=== PATIENT | male | born 1930 | race Caucasian/White ===

== ENCOUNTER → 2017-04-25 | Outpatient (CLI) | payer OTHER ==
[2017-04-25 10:31] LABS: Basophils # (auto) 0 uL; Basophils % (auto) 0.4 % (0.0-2.0); Eosinophils # (auto) 0.1 uL; Eosinophils % (auto) 2.1 % (0.0-7.0); Hematocrit 40.7 % (41.0-53.0); Hemoglobin 13.8 g/dL (13.5-17.5); Lymphocytes # (auto) 2.3 uL; Lymphocytes % (auto) 33.6 % (10.0-50.0); Mean Corpuscular Hemoglobin 31.5 pg (28.0-32.0); Mean Corpuscular Hgb Conc. 33.9 g/dL (32.0-36.0); Mean Corpuscular Volume 93.1 fL (80.0-100.0); Mean Platelet Volume 9.4 fL (7.4-10.4); Monocytes # (auto) 0.6 uL; Monocytes % (auto) 9.3 % (0.0-12.0); Neutrophils # (auto) 3.8 uL; Neutrophils % (auto) 54.6 % (37.0-80.0); Platelet Count (auto) 172 10^3/uL (140-450); Red Cell Distribution Width 14.5 % (11.6-16.0); White Blood Cell 6.9 10^3/uL (4.4-10.8)
[2017-04-25 11:08] LABS: BUN/Creatinine Ratio 16.7; Bilirubin, Total 0.5 mg/dL (0.2-1.0); Calcium 8.8 mg/dL (8.5-10.1); Potassium 4.1 mmol/L (3.5-5.1); Total Protein 7.4 g/dL (6.4-8.2)
== END | disposition home or self-care (01) ==
LOC: LAB 09:58
PROVIDERS: ATTEND Internal Medicine
DX: Z00.00 Encounter for general adult medical examination without abnormal findings (principal); I10 Essential (primary) hypertension; E78.2 Mixed hyperlipidemia; E55.9 Vitamin D deficiency, unspecified
CPT/HCPCS: 36415; 80053; 80061; 82306; 84153; 85025

== ENCOUNTER → 2017-09-27 | Outpatient (CLI) | payer OTHER ==
[2017-09-27 09:00] LABS: Urine Bilirubin Negative (Negative); Urine Blood Negative /uL (Negative); Urine Color Yellow (Yellow); Urine Glucose Normal (Normal); Urine Ketone Negative (Negative); Urine Nitrite Negative (Negative); Urine RBC <1 /hpf (0 - 3); Urine Urobilinogen Normal (Negative)
[2017-09-27 09:02] LABS: Basophils # (auto) 0 uL; Basophils % (auto) 0.6 % (0.0-2.0); Eosinophils # (auto) 0.1 uL; Hematocrit 41.2 % (41.0-53.0); Hemoglobin 13.9 g/dL (13.5-17.5); Lymphocytes # (auto) 1.8 uL; Lymphocytes % (auto) 31.7 % (10.0-50.0); Mean Corpuscular Hgb Conc. 33.8 g/dL (32.0-36.0); Mean Corpuscular Volume 94.7 fL (80.0-100.0); Mean Platelet Volume 9.6 fL (6.9-10.8); Monocytes # (auto) 0.6 uL; Monocytes % (auto) 9.9 % (0.0-12.0); Neutrophils # (auto) 3.2 uL; Neutrophils % (auto) 55.8 % (37.0-80.0); Platelet Count (auto) 136 10^3/uL (140-450); White Blood Cell 5.8 10^3/uL (4.4-10.8)
[2017-09-27 09:45] LABS: BUN/Creatinine Ratio 19.8; Bilirubin, Total 0.5 mg/dL (0.2-1.0); Calcium 8.8 mg/dL (8.5-10.1); Potassium 4.3 mmol/L (3.5-5.1); Total Protein 7.6 g/dL (6.4-8.2)
== END | disposition home or self-care (01) ==
LOC: LAB 07:33
PROVIDERS: ATTEND Family Medicine
DX: I13.0 Hypertensive heart and chronic kidney disease with heart failure and stage 1 through stage 4 chronic kidney disease, or unspecified chronic kidney disease (principal); I50.32 Chronic diastolic (congestive) heart failure; N18.3 Chronic kidney disease, stage 3 (moderate); I25.10 Atherosclerotic heart disease of native coronary artery without angina pectoris
CPT/HCPCS: 36415; 80053; 80061; 81001; 82306; 82607; 83036; 84443; 85025

== ENCOUNTER → 2017-12-05 | Outpatient (CLI) | payer OTHER ==
[2017-12-05 12:42] LABS: Free T3 2.76 pg/mL (2.3-4.2); Free T4 (Free Thyroxine) 0.73 ng/dL (0.89-1.76)
== END | disposition home or self-care (01) ==
LOC: LAB 10:49
PROVIDERS: ATTEND Family Medicine
DX: E05.90 Thyrotoxicosis, unspecified without thyrotoxic crisis or storm (principal)
CPT/HCPCS: 36415; 84439; 84443; 84481

== ENCOUNTER → 2018-02-28 | Outpatient (CLI) | payer OTHER ==
[2018-02-28 09:38] LABS: Basophils # (auto) 0.1 uL; Basophils % (auto) 0.8 % (0.0-2.0); Eosinophils # (auto) 0.1 uL; Eosinophils % (auto) 1.3 % (0.0-7.0); Hematocrit 41.3 % (41.0-53.0); Hemoglobin 13.9 g/dL (13.5-17.5); Lymphocytes # (auto) 1.9 uL; Lymphocytes % (auto) 26.5 % (10.0-50.0); Mean Corpuscular Hemoglobin 31.7 pg (28.0-32.0); Mean Corpuscular Hgb Conc. 33.7 g/dL (32.0-36.0); Mean Corpuscular Volume 94.1 fL (80.0-100.0); Monocytes # (auto) 0.7 uL; Monocytes % (auto) 9.8 % (0.0-12.0); Neutrophils # (auto) 4.3 uL; Neutrophils % (auto) 61.6 % (37.0-80.0); Platelet Count (auto) 148 10^3/uL (140-450); Red Blood Cells 4.39 10^6/uL (4.5-5.90); Red Cell Distribution Width 13.5 % (11.8-14.3)
[2018-02-28 10:00] LABS: BUN/Creatinine Ratio 19.7; Bilirubin, Total 0.5 mg/dL (0.2-1.0); Calcium 9.1 mg/dL (8.5-10.1); Potassium 4.8 mmol/L (3.5-5.1); Total Protein 7.5 g/dL (6.4-8.2)
== END | disposition home or self-care (01) ==
LOC: LAB 09:22
PROVIDERS: ATTEND Family Medicine
DX: I12.9 Hypertensive chronic kidney disease with stage 1 through stage 4 chronic kidney disease, or unspecified chronic kidney disease (principal); N18.3 Chronic kidney disease, stage 3 (moderate); E03.9 Hypothyroidism, unspecified; E78.4 Other hyperlipidemia
CPT/HCPCS: 36415; 80053; 80061; 84443; 85025

== ENCOUNTER → 2018-07-24 | Outpatient (CLI) | payer OTHER | END | disposition home or self-care (01) | LOC: LAB 10:39 | PROVIDERS: ATTEND Family Medicine | DX: E03.9 Hypothyroidism, unspecified (principal); I10 Essential (primary) hypertension | CPT/HCPCS: 36415; 84443 ==

== ENCOUNTER → 2018-11-22 | Outpatient (CLI) | payer OTHER ==
[2018-11-22 09:19] LABS: BUN/Creatinine Ratio 17.1; Calcium 8.7 mg/dL (8.5-10.1); Potassium 4.7 mmol/L (3.5-5.1)
== END | disposition home or self-care (01) ==
LOC: LAB 08:34
PROVIDERS: ATTEND Internal Medicine Cardiovascular Disease
DX: I10 Essential (primary) hypertension (principal); I20.8 Other forms of angina pectoris; E03.9 Hypothyroidism, unspecified; E78.49 Other hyperlipidemia
CPT/HCPCS: 36415; 80048

== ENCOUNTER → 2019-01-28 | Outpatient (CLI) | payer OTHER ==
[2019-01-28 11:49] LABS: BUN/Creatinine Ratio 18.3; Potassium 4.3 mmol/L (3.5-5.1)
== END | disposition home or self-care (01) ==
LOC: LAB 11:21
PROVIDERS: ATTEND Urology
DX: N40.0 Benign prostatic hyperplasia without lower urinary tract symptoms (principal)
CPT/HCPCS: 36415; 80048; 84153

== ENCOUNTER → 2019-02-06 | Outpatient (CLI) | payer OTHER | END | disposition home or self-care (01) | LOC: XY 07:30 | PROVIDERS: ATTEND Family Medicine | DX: I70.203 Unspecified atherosclerosis of native arteries of extremities, bilateral legs (principal); I10 Essential (primary) hypertension; E78.00 Pure hypercholesterolemia, unspecified | CPT/HCPCS: 93886 ==

== ENCOUNTER 2019-06-30 09:09 | Inpatient (IN) | payer OTHER ==
[2019-06-26 11:17] LABS: Basophils # (auto) 0.1 uL; Basophils % (auto) 0.8 % (0.0-2.0); Eosinophils # (auto) 0 uL; Eosinophils % (auto) 0.5 % (0.0-7.0); Hemoglobin 14.1 g/dL (13.5-17.5); Lymphocytes # (auto) 1.6 uL; Lymphocytes % (auto) 22.6 % (10.0-50.0); Mean Corpuscular Hemoglobin 31.8 pg (28.0-32.0); Mean Corpuscular Hgb Conc. 33.7 g/dL (32.0-36.0); Mean Corpuscular Volume 94.3 fL (80.0-100.0); Monocytes # (auto) 0.7 uL; Monocytes % (auto) 9.8 % (0.0-12.0); Neutrophils # (auto) 4.6 uL; Neutrophils % (auto) 66.3 % (37.0-80.0); Nucleated Red Blood Cells % 0.1 %; Platelet Count (auto) 146 10^3/uL (140-450); Red Blood Cells 4.45 10^6/uL (4.5-5.90); Red Cell Distribution Width 13.5 % (11.8-14.3); White Blood Cell 6.9 10^3/uL (4.4-10.8)
[2019-06-26 11:22] LABS: Urine Bacteria NONE SEEN /hpf (None Seen); Urine Blood Negative /uL (Negative); Urine Mucus FEW (None Seen); Urine Specific Gravity 1.029 (1.001-1.035); Urine WBC 3 /hpf (0 - 3)
[2019-06-26 11:41] LABS: INR 0.99 (0.9-1.15); Partial Thromboplastin Time 25.6 sec (23.64-32.05)
[2019-06-26 11:43] LABS: BUN/Creatinine Ratio 18.7; Calcium 9.2 mg/dL (8.5-10.1)
[2019-06-26 11:45] LABS: Bilirubin, Total 0.6 mg/dL (0.2-1.0); Total Protein 7.6 g/dL (6.4-8.2)
[~2019-06-30] VITALS: Ht 165.1 cm; Wt 65.1 kg
[~2019-06-30 09:09] MED LIST: ALBUAER3 IN; AMLO10TA13 PO; ASPI-231 PO; ASPI-404 PO; ATOR20TA50 PO; CLOP75TA41 PO; DILT180C88 PO; DILT90TA PO; DOXA1TAB50 PO; DOXA4TAB5 PO; FLUT250M2 INH; FURO40TA4 PO; GLYCOPYRROLATE 0.2 MG/ML 1ML VIAL IV ONE; MONT10TA34 PO; MULTCAP45 PO; NITR0.4S29 SL; POTA-167 PO; POTA10SO11 PO; TAMS0.4C36 PO; TRAZ50TA2 PO
[2019-06-30] MEDS ORDERED: fentaNYL CITRATE 100 MCG/2 ML VL IV PRN (12:15)
[2019-06-30] MEDS ORDERED: HYDROmorphone HCL 2 MG/ML VL IV PRN (12:15)
[2019-06-30] MEDS ORDERED: METOCLOPRAMIDE HCL 5MG/ml INJ 2ml VIAL IV PRN (12:15)
[2019-06-30] MEDS ORDERED: KETOROLAC TROMETH 30 MG/ML 1ML VIAL IV ONE (12:15)
[2019-06-30] MEDS ORDERED: ONDANSETRON HCL 4 MG/2 ML VIAL ONE (12:24)
[2019-06-30] MEDS ORDERED: fentaNYL CITRATE 100 MCG/2 ML VL ONE (12:24)
[2019-06-30] MEDS ORDERED: SODIUM CHLORIDE LOCK 30 ML ONE (12:24)
[2019-06-30] MEDS ORDERED: MIDAZOLAM HCL 1MG/1ML-2 ML VIAL ONE (12:24)
[2019-06-30] MEDS ORDERED: PROPOFOL 10 MG/ML 20 ML IV ONE (12:24)
[2019-06-30] MEDS ORDERED: CIPROFLOXACIN 400MG/200ML 200 ML IV ONE (12:51)
[2019-06-30] MEDS ORDERED: IPRATROPIUM BROM 0.5 MG/2.5ML INH SOL ONE (14:23)
[2019-06-30] MEDS ORDERED: ALBUTEROL SULF 2.5 MG/0.5ML(0.5%) NEB SOLN ONE (14:23)
[2019-06-30] MEDS ORDERED: IPRATROPIUM BROM 0.5 MG/2.5ML INH SOL NEB ONE (14:30)
[2019-06-30] MEDS ORDERED: ALBUTEROL SULF 2.5 MG/0.5ML(0.5%) NEB SOLN NEB ONE (14:30)
--- NOTE | 2019-06-30 14:40 | NUR ---
MN GIVEN WITH 1.25MG ALBUTEROL AND 0.5MG ATROVENT VIA AEROSOL MASK 6L/MIN. PT IS AWAKE, ALERT AND ORIENTED, ABLE TO UNDERSTAND AND FOLLOW INDICATIONS. BS ARE INSPIRATORY WHEEZES TO AUSCULTATION. PT ON HIGH FOWLERS. PT TOLERATING WELL. 99% O2 SATS, HR 101 BPM, RR22 BPM. WILL CONTINUE TO MONITOR PT.
--- NOTE | 2019-06-30 14:50 | NUR ---
PT PLACED ON 30% COOL MYST VIA AEROSOL MASK. PER DR OVERTON.
[2019-06-30] MEDS ORDERED: MORPHINE SULF INJ 2 MG/ML SYRINGE 1ML IV PRN (15:15)
[2019-06-30] MEDS ORDERED: methylPREDNISolone SOD SUCC 125 MG/2 ML VL IV ONE (15:15)
[2019-06-30] MEDS ORDERED: ALBUTEROL SULF 2.5 MG/0.5ML(0.5%) NEB SOLN NEB PRN (15:15)
[2019-06-30] MEDS ORDERED: NITROGLYCERIN 0.4 MG SL TAB SL PRN (15:15)
[2019-06-30] MEDS ORDERED: IPRATROPIUM BROM 0.5 MG/2.5ML INH SOL NEB PRN (15:15)
[2019-06-30 17:40] VITALS: BP 154/67
--- NOTE | 2019-06-30 17:40 | NUR ---
Telemetry admit from ER [facility] P[facility]REZ admitted to Telemetry unit after SBAR received. Patient oriented to AYDEN GONZALEZ, primary RN, unit, room, bed, and unit policies regarding patient care and visiting hours. Patient now on continuous telemetry monitoring, tele box # 29 and telemetry reading on arrival to unit is . Patient placed on bedside oxygen, weighed by bed scale and encouraged to call if they need something. All questions and concerns addressed, patient verbalized understanding.
[2019-06-30] MEDS: IPRATROPIUM BROM 0.5 MG/2.5ML INH SOL NEB SCH (18:28)
[2019-06-30] MEDS: BUDESONIDE (INHALATION) 0.5 MG/2 ML NEB NEB SCH (18:28)
[2019-06-30] MEDS: ALBUTEROL SULF 2.5 MG/0.5ML(0.5%) NEB SOLN NEB SCH (18:28)
[2019-06-30 18:48] VITALS: BP 154/67
--- NOTE | 2019-06-30 19:00 | NUR ---
Opening Shift Note Assumed care of patient, awake and alert. Family on bedside. No S/S of distress/SOB or pain. Instructed on POC and to call for assist PRN, will continue to monitor for changes Q1hr and PRN.
[2019-06-30 20:00] VITALS: BP 143/77
[2019-06-30 22:08] VITALS: BP 143/77
[2019-07-01] MEDS: BUDESONIDE (INHALATION) 0.5 MG/2 ML NEB NEB SCH ×3 (06:35→19:19)
[2019-07-01] MEDS: ALBUTEROL SULF 2.5 MG/0.5ML(0.5%) NEB SOLN NEB SCH ×3 (06:35→19:18)
[2019-07-01] MEDS: IPRATROPIUM BROM 0.5 MG/2.5ML INH SOL NEB SCH ×3 (06:35→19:19)
[2019-07-01] MEDS ORDERED: amLODIPine BESYLATE 5 MG TAB ONE (06:37)
[2019-07-01 06:56] LABS: Calcium 9.1 mg/dL (8.5-10.1); Potassium 4.1 mmol/L (3.5-5.1)
--- NOTE | 2019-07-01 07:28 | NUR ---
Opening Shift Note Assumed care of patient, awake and alert. No S/S of distress/SOB or pain. Instructed on POC and to call for assist PRN, will continue to monitor for changes Q1hr and PRN.
[2019-07-01] MEDS: MONTELUKAST SODIUM 10 MG TAB PO SCH (09:30)
[2019-07-01] MEDS: ATORVASTATIN 20 MG TAB PO SCH (09:30)
[2019-07-01 09:35] VITALS: BP 137/74
[2019-07-01] MEDS ORDERED: PATIENTS OWN MEDICATION (Atorvastatin Calcium 1 TAB) PO SCH (10:00)
[2019-07-01] MEDS ORDERED: ASPirin-EC 81 mg tab PO SCH (10:00)
[2019-07-01 11:13] LABS: Basophils # (auto) 0 uL; Basophils % (auto) 0.1 % (0.0-2.0); Eosinophils # (auto) 0 uL; Hematocrit 43.1 % (41.0-53.0); Hemoglobin 14.3 g/dL (13.5-17.5); Lymphocytes # (auto) 0.8 uL; Lymphocytes % (auto) 10.8 % (10.0-50.0); Mean Corpuscular Hemoglobin 31.6 pg (28.0-32.0); Mean Corpuscular Hgb Conc. 33.3 g/dL (32.0-36.0); Mean Corpuscular Volume 95.1 fL (80.0-100.0); Monocytes # (auto) 0.1 uL; Monocytes % (auto) 1.2 % (0.0-12.0); Neutrophils # (auto) 6.1 uL; Neutrophils % (auto) 87.9 % (37.0-80.0); Nucleated Red Blood Cells % 0.1 %; Platelet Count (auto) 135 10^3/uL (140-450); Red Blood Cells 4.53 10^6/uL (4.5-5.90); Red Cell Distribution Width 13.8 % (11.8-14.3)
[2019-07-01] MEDS ORDERED: DILTIAZEM HCL 90 MG PO SCH (12:00)
[2019-07-01 13:00] VITALS: BP 147/62
[2019-07-01] MEDS ORDERED: LEVOTHYROXINE SODIUM 50 MCG TAB PO ONE (15:15)
[2019-07-01 15:51] VITALS: BP 150/80
[2019-07-01] MEDS: TAMSULOSIN HYDROCHLORIDE 0.4 MG CAP PO SCH (17:44)
[2019-07-01 18:43] VITALS: BP 132/67
--- NOTE | 2019-07-01 19:19 | NUR ---
Change of shift given to social services coordinator RN. No distress noted.
--- NOTE | 2019-07-01 19:30 | NUR ---
Opening Shift Note Assumed care of patient, sleeping. No S/S of distress/SOB or pain. Awakened upon this RN's entering room. Instructed on POC and to call for assist PRN, will continue to monitor for changes Q1hr and PRN. Bed in low position. Pt smiling and in good spirits. Bed low with HOB in semi-Rios's position. Call light within reach of pt.
[2019-07-01 22:00] VITALS: BP 146/75
--- NOTE | 2019-07-01 22:20 | NUR ---
Pt awakened, startled and anxious, thinking he is losing his mind because he did not know where he is. Pt c/o substernal cramping pain and reported difficulty breathing. Pt tachypneic but no other s/sx of resp distress. BBS cont clear in upper lobes and diminished in bilat lower lobes. HR low 90s and rhythm at present is NSR. NVS WNL. Paging hospitalist computer information systems professor. RN returned to talk with pt for further assessment. Pt telling of experience in OR but confusing it with being in present room also states that his daughter constantly tells him to stop worrying about past negative occurrences in his life and worrying about other people. Pt then attempting to find things wrong with his mind. This RN instructing pt repeatedly to relax, quieten himself and stop dwelling on negative things he cannot change at this time. Pt laughed again stating his daughter tells him this "all the time."
--- NOTE | 2019-07-01 22:40 | NUR ---
Sanjuana Metzger RN MACHINE CLERICAL VERIFIER, hospitalist application support manager, returned page ordering Tylenol as one time dose.
[2019-07-01] MEDS ORDERED: ACETAMINOPHEN 325 MG TAB PO ONE (22:45)
--- NOTE | 2019-07-01 23:00 | NUR ---
Tylenol not cleared through pharmacy yet. Pt states he is "beginning to feel better in my head."
--- NOTE | 2019-07-01 23:34 | NUR ---
Pt refused Tylenol stating he is not in pain.
[2019-07-02 05:06] VITALS: BP 149/72
[2019-07-02 06:18] LABS: Calcium 8.9 mg/dL (8.5-10.1); Magnesium 2.7 mg/dL (1.6-2.6)
[2019-07-02] MEDS: ALBUTEROL SULF 2.5 MG/0.5ML(0.5%) NEB SOLN NEB SCH ×3 (06:26→18:22)
[2019-07-02] MEDS: BUDESONIDE (INHALATION) 0.5 MG/2 ML NEB NEB SCH ×2 (06:27→18:23)
[2019-07-02] MEDS: IPRATROPIUM BROM 0.5 MG/2.5ML INH SOL NEB SCH ×3 (06:27→18:22)
[2019-07-02 06:36] LABS: Potassium 4.2 mmol/L (3.5-5.1)
[2019-07-02] MEDS: LEVOTHYROXINE SODIUM 50 MCG TAB PO SCH (06:46)
[2019-07-02 08:00] VITALS: BP 138/70
[2019-07-02] MEDS: ATORVASTATIN 20 MG TAB PO SCH (09:15)
[2019-07-02] MEDS: MONTELUKAST SODIUM 10 MG TAB PO SCH (09:15)
[2019-07-02] MEDS: amLODIPine BESYLATE 5 MG TAB PO SCH (09:16)
[2019-07-02 12:00] VITALS: BP 139/74
[2019-07-02] MEDS ORDERED: MILK OF MAGNESIA 30ML SUSP PO ONE (13:00)
--- NOTE | 2019-07-02 13:17 | NUR ---
Valeria Phillips NP paged. Awaiting call back.
--- NOTE | 2019-07-02 13:19 | NUR ---
Speak with Valeria Phillips NP. Per DUMPMAN, Dr. Benz cleared patient for surgery.
--- NOTE | 2019-07-02 14:46 | NUR ---
Spoke to Dr. Carbone. Per , page Dr. Banda regarding POC. Dr. Banda paged, awaiting call back.
--- NOTE | 2019-07-02 15:26 | NUR ---
Spoke with Dr. Banda. Per MD, he will be in later this evening to assess patient for POC and possible surgery.
[2019-07-02 16:54] VITALS: BP 118/61
--- NOTE | 2019-07-02 17:22 | NUR ---
Received call from Dr. Banda. Per , surgery is planned for tomorrow. Use original consents.
[2019-07-02] MEDS: TAMSULOSIN HYDROCHLORIDE 0.4 MG CAP PO SCH (17:38)
--- NOTE | 2019-07-02 19:15 | NUR ---
Opening Shift Note Assumed care of patient, awake and alert. No S/S of distress/SOB and pt denies pain. Instructed pt and and daughter on POC and to call for assist PRN. Family asking questions regarding pt's prev knee surg and current plan and plan for current diagnosis. This RN discussing with family that current diagnosis requiring more observation and assessment and that consult requested for ortho not yet done. Family VU and thanks for information. Reviewed VS of the day as well as bp taken at this time and relayed to them as requested. Again family VU and pleasure at attention received. This RN will continue to monitor for changes Q1hr and PRN. Bed in low position with HOB in semi- Rios's position. Sitter in chair at foot of bed. Addendum: 07/03/19 at 0430 by TAMRA SOLORIO RN Above not entered on wrong patient by mistake and for wrong time.
--- NOTE | 2019-07-02 19:18 | NUR ---
Change of shift given to manufacturing shift supervisor RN. No distress noted.
--- NOTE | 2019-07-02 19:30 | NUR ---
Opening Shift Note Assumed care of patient, alert and watching television. No S/S of distress/SOB and pt denies pain. Instructed on POC and to call for assist PRN, will continue to monitor for changes Q1hr and PRN. Pt smiling and in good spirits. Bed low with HOB in semi-Rios's position. Call light within reach of pt.
[2019-07-02 21:22] VITALS: BP 120/68
[2019-07-03 03:50] VITALS: BP 138/68
[2019-07-03] MEDS: LEVOTHYROXINE SODIUM 50 MCG TAB PO SCH (06:26)
[2019-07-03] MEDS: IPRATROPIUM BROM 0.5 MG/2.5ML INH SOL NEB SCH ×3 (07:23→19:09)
[2019-07-03] MEDS: BUDESONIDE (INHALATION) 0.5 MG/2 ML NEB NEB SCH ×2 (07:24→19:09)
[2019-07-03] MEDS: ALBUTEROL SULF 2.5 MG/0.5ML(0.5%) NEB SOLN NEB SCH ×3 (07:24→19:09)
[2019-07-03 08:00] VITALS: BP 137/77
--- NOTE | 2019-07-03 08:33 | NUR ---
patient off unit to procedure. no pain or signs of distress.
[2019-07-03] MEDS ORDERED: CIPROFLOXACIN 400MG/200ML 200 ML IV ONE (08:59)
[2019-07-03] MEDS ORDERED: fentaNYL CITRATE 100 MCG/2 ML VL ONE (09:04)
[2019-07-03] MEDS ORDERED: MIDAZOLAM HCL 1MG/1ML-2 ML VIAL ONE (09:05)
[2019-07-03] MEDS ORDERED: PROPOFOL 10 MG/ML 20 ML IV ONE (09:07)
[2019-07-03] MEDS ORDERED: ONDANSETRON HCL 4 MG/2 ML VIAL ONE (09:07)
[2019-07-03] MEDS ORDERED: SODIUM CHLORIDE LOCK 10 ML ONE (09:07)
[2019-07-03] MEDS ORDERED: SUCCINYLCHOLINE CHLORIDE 20 MG/ML 10ML VIAL IV ONE (09:42)
[2019-07-03] MEDS ORDERED: ROCURONIUM 10MG/ML 10ML VIAL IV ONE (09:42)
[2019-07-03 12:00] VITALS: BP 150/73
--- NOTE | 2019-07-03 12:00 | NUR ---
patient back to room. no reported complications. patient tolerated the procedure well.
[2019-07-03] MEDS: ATORVASTATIN 20 MG TAB PO SCH (14:30)
--- NOTE | 2019-07-03 14:30 | NUR ---
PATIENT'S URINE TURNING BLOODY. GROSS HEMATURIA NOTED IN THE ALATORRE. LITTLE TO NO OUTPUT AT THE MOMENT. WILL CONTINUE TO MONITOR OUTPUT FOR SIGNS OF A POSSIBLE CLOT BLOCKAGE.
[2019-07-03] MEDS: amLODIPine BESYLATE 5 MG TAB PO SCH (14:31)
[2019-07-03] MEDS: MONTELUKAST SODIUM 10 MG TAB PO SCH (14:31)
--- NOTE | 2019-07-03 14:52 | NUR ---
Nutrition Assessment Notes please see attached link for complete assessment Est. Needs BW [id number] kcal (25-30 kcal/kgBW), 62-74 gms pro (1.0-1.2 gms/kgBW). Will continue to monitor pertinent labs and reassess nutrient need prn Addendum: 07/03/19 at [address] Amended: Links added.
--- NOTE | 2019-07-03 15:32 | NUR ---
NO SIGNIFICANT AMOUNT OF OUTPUT IN THE LAST HOUR. DR. MCKENZIE NOTIFIED. WILL FLUSH THE LINE TO DETERMINE PATENCY.
[2019-07-03] MEDS ORDERED: DOCUSATE SOD 100 MG CAP PO ONE (15:45)
[2019-07-03] MEDS ORDERED: LACTULOSE 20Gm/30ML SOLN PO ONE (15:45)
--- NOTE | 2019-07-03 15:57 | NUR ---
Spoke with Dr. Banda. He instructed me to do manually flush and see if the urine runs clear. if the urine will not clear than we can start the patient on CBI.
--- NOTE | 2019-07-03 16:10 | NUR ---
Davis flushed with sterile water. davis is patent. urine started to clear from bright red to more pale pink. will continue to monitor urine output and patentcy. patient reported that he was moving and the tube got caught and he accidentally tugged on the davis. at that time is started bleeding.
[2019-07-03 17:00] VITALS: BP 128/76
--- NOTE | 2019-07-03 17:23 | NUR ---
assessment Patient is a 88 year old male who is alert and oriented. Patients cognitive abilities are intact. Prior to admission patient lived home with family and functioned with assistance. Per patient he will return home to his prior living arrangements post discharge and family will transport him home. Patient informed me his PCP is Dr Kai Norman. Patient informed me his daughter Venecia helps him with his ADL's. Patient informed me he feels safe returning home on discharge. Patient informed me he has no needs at home. I informed patient he has a right to speak to a social insurance administrator regarding all care. I informed patient he has a right to participate in any and all discharge planning. Patient is aware of visiting hours on the hospital floor. I informed patient he has a right to privacy. Patient does not have a POA and advanced directive. I have offered patient information on POA and advanced directives. I informed the patient the advantages and benefits of having an Advanced Directive. Patient verbalized understanding and agreed to discharge plan. Addendum: 07/04/19 at 1726 by Lauren MYLES Amended: Links added.
[2019-07-03] MEDS: TAMSULOSIN HYDROCHLORIDE 0.4 MG CAP PO SCH (18:15)
--- NOTE | 2019-07-03 19:40 | NUR ---
Opening Shift Note Assumed care of patient, awake and alert. No S/S of distress/SOB or pain. Instructed on POC and to call for assist PRN. Bed in lowest locked position, call light within reach, side rails up x2, fall precautions in place. Will continue to monitor for changes Q1hr and PRN.
[2019-07-03 21:49] VITALS: BP 139/62
--- NOTE | 2019-07-03 22:10 | NUR ---
Davis flushed Hematuria still noted in davis. Flushed with sterile water to ensure patency. Urine came out clear with a light tinge of pink after being flushed. Will continue to monitor output and patency. Continue care.
--- NOTE | 2019-07-04 02:00 | NUR ---
Hospitalist paged CAITY Metzger called regarding patient requesting pain medication for 8/10 pain "in my bladder and where the catheter is inserted". Waiting for call back. Continue care.
[2019-07-04] MEDS ORDERED: traMADol HCL 50 MG TAB PO ONE (02:45)
[2019-07-04] MEDS: LEVOTHYROXINE SODIUM 50 MCG TAB PO SCH (06:22)
[2019-07-04 06:23] LABS: Basophils # (auto) 0 uL; Basophils % (auto) 0.3 % (0.0-2.0); Eosinophils # (auto) 0.1 uL; Eosinophils % (auto) 0.7 % (0.0-7.0); Hematocrit 41.6 % (41.0-53.0); Hemoglobin 14.3 g/dL (13.5-17.5); Lymphocytes # (auto) 1.5 uL; Lymphocytes % (auto) 14.3 % (10.0-50.0); Mean Corpuscular Hemoglobin 32.4 pg (28.0-32.0); Mean Corpuscular Hgb Conc. 34.3 g/dL (32.0-36.0); Mean Corpuscular Volume 94.3 fL (80.0-100.0); Monocytes # (auto) 1.3 uL; Monocytes % (auto) 11.7 % (0.0-12.0); Neutrophils # (auto) 7.8 uL; Nucleated Red Blood Cells % 0.1 %; Platelet Count (auto) 140 10^3/uL (140-450); Red Blood Cells 4.41 10^6/uL (4.5-5.90); Red Cell Distribution Width 13.7 % (11.8-14.3); White Blood Cell 10.7 10^3/uL (4.4-10.8)
[2019-07-04 06:38] LABS: BUN/Creatinine Ratio 18.8; Calcium 8.5 mg/dL (8.5-10.1); Potassium 3.9 mmol/L (3.5-5.1)
[2019-07-04] MEDS: ALBUTEROL SULF 2.5 MG/0.5ML(0.5%) NEB SOLN NEB SCH ×2 (06:50→11:43)
[2019-07-04] MEDS: BUDESONIDE (INHALATION) 0.5 MG/2 ML NEB NEB SCH (06:50)
[2019-07-04] MEDS: IPRATROPIUM BROM 0.5 MG/2.5ML INH SOL NEB SCH ×2 (06:50→11:43)
--- NOTE | 2019-07-04 07:30 | NUR ---
Opening Shift Note Assumed care of patient, awake and alert. No S/S of distress/SOB or pain. Urine is clear, pale yellow. no more signs of bleeding. Instructed on POC and to call for assist PRN, will continue to monitor for changes Q1hr and PRN.
[2019-07-04 08:00] VITALS: BP 100/70
[2019-07-04 08:47] VITALS: BP 130/70
[2019-07-04] MEDS: ATORVASTATIN 20 MG TAB PO SCH (09:21)
[2019-07-04] MEDS: MONTELUKAST SODIUM 10 MG TAB PO SCH (09:22)
[2019-07-04] MEDS: amLODIPine BESYLATE 5 MG TAB PO SCH (09:22)
[2019-07-04 11:14] VITALS: BP 100/70
--- NOTE | 2019-07-04 13:07 | NUR ---
Discharge instructions given as ordered. Encourage to follow up with Primary physician and Dr. Banda for continued Urologic treatment. Appointments made and the information given to the patient. All questions and concerns addressed. Patient verbalized understanding. IV removed with catheter intact, pressure dressing applied, davis catheter left in place and converted to urinary leg bag per Dr. Banda's orders. Patient educated on Davis care and the importance of good hygiene. Telemetry unit returned to [facility]. Patient taken to vehicle via wheelchair with all personal belongings, accompanied by staff and family member. No distress noted at time of departure.
[2019-07-09] MEDS ORDERED: LEVO50TA7 PO (00:52)
[2019-07-09] MEDS ORDERED: CIPR-217 PO (00:52)
== END 2019-07-04 13:07 | disposition home or self-care (01) | DRG 988 ==
LOC: SUR 09:09 → TELE-WESTW 09:10
PROVIDERS: ADMIT Urology; ATTEND Internal Medicine
PROC: 0WJR8ZZ Inspection of Genitourinary Tract, Via Natural or Artificial Opening Endoscopic Approach (ICD-10-PCS; 2019-07-03)
PROC: 0TBC8ZZ Excision of Bladder Neck, Via Natural or Artificial Opening Endoscopic (ICD-10-PCS; principal; 2019-07-03 09:42)
DX: R00.1 Bradycardia, unspecified (principal); I50.32 Chronic diastolic (congestive) heart failure; I13.0 Hypertensive heart and chronic kidney disease with heart failure and stage 1 through stage 4 chronic kidney disease, or unspecified chronic kidney disease; N32.0 Bladder-neck obstruction; I42.9 Cardiomyopathy, unspecified; E78.5 Hyperlipidemia, unspecified; G47.00 Insomnia, unspecified; I25.10 Atherosclerotic heart disease of native coronary artery without angina pectoris; J44.9 Chronic obstructive pulmonary disease, unspecified; K40.90 Unilateral inguinal hernia, without obstruction or gangrene, not specified as recurrent; N18.3 Chronic kidney disease, stage 3 (moderate); F41.9 Anxiety disorder, unspecified; N40.0 Benign prostatic hyperplasia without lower urinary tract symptoms; Z53.9 Procedure and treatment not carried out, unspecified reason; Z79.02 Long term (current) use of antithrombotics/antiplatelets; Z79.51 Long term (current) use of inhaled steroids; Z79.82 Long term (current) use of aspirin; Z79.899 Other long term (current) drug therapy; Z82.49 Family history of ischemic heart disease and other diseases of the circulatory system; Z90.79 Acquired absence of other genital organ(s); Z95.5 Presence of coronary angioplasty implant and graft; Z88.8 Allergy status to other drugs, medicaments and biological substances
CPT/HCPCS: 36415; 71045; 80048; 80053; 81001; 83735; 84443; 84484; 85025; 85610; 85730; 93306; 94640; G0378; J0330; J2250; J2405; J2704

== ENCOUNTER 2019-07-08 10:45 | Inpatient (IN) | payer OTHER | END 2019-07-11 14:30 | disposition home or self-care (01) | LOC: ER 10:45 → TELE 10:46 → TELE-WESTW 18:10 | DX: J44.9 Chronic obstructive pulmonary disease, unspecified (principal); I13.0 Hypertensive heart and chronic kidney disease with heart failure and stage 1 through stage 4 chronic kidney disease, or unspecified chronic kidney disease; N18.3 Chronic kidney disease, stage 3 (moderate); K40.90 Unilateral inguinal hernia, without obstruction or gangrene, not specified as recurrent; J45.909 Unspecified asthma, uncomplicated; E78.5 Hyperlipidemia, unspecified; N40.0 Benign prostatic hyperplasia without lower urinary tract symptoms; Z95.5 Presence of coronary angioplasty implant and graft; I50.9 Heart failure, unspecified; I25.10 Atherosclerotic heart disease of native coronary artery without angina pectoris; Z86.73 Personal history of transient ischemic attack (TIA), and cerebral infarction without residual deficits ==

== ENCOUNTER → 2019-08-20 | Day surgery (SDC) | payer OTHER ==
[2019-08-18 12:01] LABS: Basophils # (auto) 0.1 uL; Basophils % (auto) 0.8 % (0.0-2.0); Eosinophils # (auto) 0 uL; Eosinophils % (auto) 0.4 % (0.0-7.0); Hematocrit 41.4 % (41.0-53.0); Lymphocytes # (auto) 1.5 uL; Lymphocytes % (auto) 20.4 % (10.0-50.0); Mean Corpuscular Hemoglobin 31.9 pg (28.0-32.0); Mean Corpuscular Hgb Conc. 33.8 g/dL (32.0-36.0); Mean Corpuscular Volume 94.2 fL (80.0-100.0); Monocytes # (auto) 0.8 uL; Neutrophils # (auto) 5.2 uL; Neutrophils % (auto) 68.4 % (37.0-80.0); Platelet Count (auto) 168 10^3/uL (140-450); Red Blood Cells 4.39 10^6/uL (4.5-5.90); Red Cell Distribution Width 14.5 % (11.8-14.3); White Blood Cell 7.6 10^3/uL (4.4-10.8)
[2019-08-18 12:06] LABS: Urine Bacteria NONE SEEN /hpf (None Seen); Urine Blood Negative /uL (Negative); Urine Mucus FEW (None Seen); Urine WBC 35 /hpf (0 - 3)
[2019-08-18 12:15] LABS: INR 0.99 (0.9-1.15); Partial Thromboplastin Time 26.8 sec (23.64-32.05)
[2019-08-18 12:30] LABS: Potassium 4.3 mmol/L (3.5-5.1)
[2019-08-18 12:37] LABS: Albumin 3.9 g/dL (3.4-5.0); BUN/Creatinine Ratio 17.2; Bilirubin, Total 0.5 mg/dL (0.2-1.0); Calcium 8.7 mg/dL (8.5-10.1); Total Protein 7.1 g/dL (6.4-8.2)
[~2019-08-20] VITALS: Ht 167.6 cm; Wt 65.8 kg
[~2019-08-20] MED LIST changes: +ALPR0.254 PO; -ASPI-231 PO; +BUPIVACAINE W/ EPINEPH 0.25% INJ 50ML MDV ONE; -DILT90TA PO; -DOXA1TAB50 PO; -DOXA4TAB5 PO; -FURO40TA4 PO; -GLYCOPYRROLATE 0.2 MG/ML 1ML VIAL IV ONE; +HYDROmorphone HCL 2 MG/ML VL IV PRN; +LEVO50TA7 PO; +LIDOCAINE 1% HCL (LOCAL ANESTH.) INJ 20ML MDV ONE; +MEPERIDINE HCL (25 MG/ML) 1ML VIAL ONE; +METOCLOPRAMIDE HCL 5MG/ml INJ 2ml VIAL IV PRN; +MIDAZOLAM HCL 1MG/1ML-2 ML VIAL ONE; +ONDANSETRON HCL 4 MG/2 ML VIAL ONE; -POTA-167 PO; -POTA10SO11 PO; +PROPOFOL 10 MG/ML 20 ML IV ONE; +ROCURONIUM 10MG/ML 10ML VIAL IV ONE; +SODIUM CHLORIDE LOCK 10 ML ONE; -TRAZ50TA2 PO; +ceFAZolin 1GM/50ML 50 ML IV ONE; +fentaNYL CITRATE 100 MCG/2 ML VL IV PRN; +fentaNYL CITRATE 100 MCG/2 ML VL ONE
[2019-08-20 11:44] VITALS: BP 111/52
== END | disposition home or self-care (01) ==
LOC: SUR 07:36
PROVIDERS: ATTEND Surgery
DX: K40.90 Unilateral inguinal hernia, without obstruction or gangrene, not specified as recurrent (principal); I13.0 Hypertensive heart and chronic kidney disease with heart failure and stage 1 through stage 4 chronic kidney disease, or unspecified chronic kidney disease; I50.32 Chronic diastolic (congestive) heart failure; N18.3 Chronic kidney disease, stage 3 (moderate); J44.9 Chronic obstructive pulmonary disease, unspecified; K57.30 Diverticulosis of large intestine without perforation or abscess without bleeding; I25.10 Atherosclerotic heart disease of native coronary artery without angina pectoris; I25.119 Atherosclerotic heart disease of native coronary artery with unspecified angina pectoris; E03.9 Hypothyroidism, unspecified; E78.5 Hyperlipidemia, unspecified; Z86.73 Personal history of transient ischemic attack (TIA), and cerebral infarction without residual deficits; Z79.899 Other long term (current) drug therapy; Z88.8 Allergy status to other drugs, medicaments and biological substances; Z87.891 Personal history of nicotine dependence; Z98.890 Other specified postprocedural states; Z95.818 Presence of other cardiac implants and grafts
CPT/HCPCS: 36415; 49505; 80053; 81001; 85025; 85610; 85730; 88302; J0690; J2175; J2250; J2405; J2704; J3010; Q4100; J2001

== ENCOUNTER → 2019-10-23 | Outpatient (CLI) | payer OTHER ==
[~2019-10-23] MED LIST changes: -BUPIVACAINE W/ EPINEPH 0.25% INJ 50ML MDV ONE; -HYDROmorphone HCL 2 MG/ML VL IV PRN; -LIDOCAINE 1% HCL (LOCAL ANESTH.) INJ 20ML MDV ONE; -MEPERIDINE HCL (25 MG/ML) 1ML VIAL ONE; -METOCLOPRAMIDE HCL 5MG/ml INJ 2ml VIAL IV PRN; -MIDAZOLAM HCL 1MG/1ML-2 ML VIAL ONE; -ONDANSETRON HCL 4 MG/2 ML VIAL ONE; -PROPOFOL 10 MG/ML 20 ML IV ONE; -ROCURONIUM 10MG/ML 10ML VIAL IV ONE; -SODIUM CHLORIDE LOCK 10 ML ONE; -ceFAZolin 1GM/50ML 50 ML IV ONE; -fentaNYL CITRATE 100 MCG/2 ML VL IV PRN; -fentaNYL CITRATE 100 MCG/2 ML VL ONE
== END | disposition home or self-care (01) ==
LOC: LAB 15:59
PROVIDERS: ATTEND Urology
DX: N39.0 Urinary tract infection, site not specified (principal)
CPT/HCPCS: 87086

== ENCOUNTER → 2020-08-11 | Outpatient (CLI) | payer OTHER ==
[~2020-08-11] VITALS: Ht 165.1 cm; Wt 63.5 kg
[~2020-08-11] MED LIST changes: +ADENOSINE 53 MG in GIVE UN-DILUTED 0 ML IV STA; -ASPI-404 PO; +ASPI-543 PO
== END | disposition home or self-care (01) ==
LOC: XY 08:35
PROVIDERS: ATTEND Internal Medicine
DX: I25.10 Atherosclerotic heart disease of native coronary artery without angina pectoris (principal)
CPT/HCPCS: 78452; 93017; A9500; J0153

== ENCOUNTER → 2020-08-12 | Outpatient (CLI) | payer OTHER ==
[~2020-08-12] MED LIST changes: -ADENOSINE 53 MG in GIVE UN-DILUTED 0 ML IV STA
== END | disposition home or self-care (01) ==
LOC: XYW 09:22
PROVIDERS: ATTEND Internal Medicine
DX: I25.10 Atherosclerotic heart disease of native coronary artery without angina pectoris (principal)
CPT/HCPCS: 93306

== ENCOUNTER 2020-09-02 15:28 | Inpatient (IN) | payer OTHER ==
[~2020-09-02] VITALS: Ht 165.1 cm; Wt 61.0 kg
[2020-09-02] MEDS ORDERED: DexAMETHasone SOD PHOS 10MG/1ML VIAL INJ IV ONE (16:00)
[2020-09-02] MEDS ORDERED: SODIUM CHLORIDE 0.9% 1,000 ML IV ONE (16:00)
[2020-09-02] MEDS ORDERED: ZINC SULFATE 220mg CAP or TAB PO ONE (17:00)
[2020-09-02] MEDS ORDERED: ASCORBIC ACID 500 MG TAB PO ONE (17:00)
[2020-09-02] MEDS ORDERED: DOXYCYCLINE 100MG/250ML 250 ML IV ONE (17:00)
[2020-09-02 18:04] LABS: Basophils # (auto) 0 10 ^3/uL (0-0.2); Basophils % (auto) 0.2 % (0.0-2.0); Eosinophils # (auto) 0 10 ^3/uL (0-0.8); Eosinophils % (auto) 0.5 % (0.0-7.0); Hematocrit 42.4 % (41.0-53.0); Hemoglobin 14.1 g/dL (13.5-17.5); Lymphocytes % (auto) 16.5 % (10.0-50.0); Mean Corpuscular Hgb Conc. 33.4 g/dL (32.0-36.0); Mean Corpuscular Volume 92.9 fL (80.0-100.0); Monocytes # (auto) 0.7 10 ^3/uL (0-1.3); Monocytes % (auto) 11.7 % (0.0-12.0); Neutrophils # (auto) 4.3 10 ^3/uL (1.6-8.6); Neutrophils % (auto) 71.1 % (37.0-80.0); Platelet Count (auto) 111 10^3/uL (140-450); Red Blood Cells 4.56 10^6/uL (4.5-5.90); Red Cell Distribution Width 13.5 % (11.8-14.3)
[2020-09-02 18:21] LABS: Potassium 4.1 mmol/L (3.5-5.1)
[2020-09-02] MEDS ORDERED: MORPHINE SULF INJ 2 MG/ML SYRINGE 1ML IV PRN (18:30)
[2020-09-02] MEDS ORDERED: ALUM & MAG HYDROX-SIMETH LIQ(MAALOX) 30 ML PO PRN (18:30)
[2020-09-02] MEDS ORDERED: NITROGLYCERIN 0.4 MG SL TAB SL PRN (18:30)
[2020-09-02] MEDS ORDERED: VANCOMYCIN PER PHARMACY 0 MG IV SCH (18:30)
[2020-09-02] MEDS ORDERED: ONDANSETRON HCL 4 MG/2 ML VIAL IV PRN (18:30)
[2020-09-02] MEDS ORDERED: DOCUSATE SOD 100 MG CAP PO PRN (18:30)
[2020-09-02] MEDS ORDERED: ACETAMINOPHEN 325 MG TAB PO PRN (18:30)
[2020-09-02] MEDS ORDERED: ENOXAPARIN SOD 100 MG/1 ML SYRINGE SC ONE (18:30)
[2020-09-02] MEDS ORDERED: methylPREDNISolone SOD SUCC 125 MG/2 ML VL IV ONE (18:30)
[2020-09-02] MEDS ORDERED: PIPERACILLIN-TAZOB 3.375GM 100 ML IV ONE (18:30)
[2020-09-02] MEDS ORDERED: HYDROcodone-ACET 5/325MG TAB PO PRN (18:30)
[2020-09-02] MEDS ORDERED: SODIUM CHLORIDE 0.9% 1,000 ML IV SCH (18:30)
[2020-09-02] MEDS ORDERED: ACETAMINOPHEN 500 MG TAB PO PRN (18:30)
[2020-09-02 18:32] LABS: Albumin 3.8 g/dL (3.4-5.0); BUN/Creatinine Ratio 14.8; Bilirubin, Total 0.8 mg/dL (0.2-1.0); CRP High Sensitivity 5.63 mg/dL (< 0.3); Calcium 8.6 mg/dL (8.5-10.1); Total Protein 7.2 g/dL (6.4-8.2)
[2020-09-02 19:27] LABS: Amphetamine Screen, Urine NEGATIVE (NEGATIVE); Barbiturate Scree,Urine NEGATIVE (NEGATIVE); Benzodiazephine Screen, Urine NEGATIVE (NEGATIVE); Cannabinoid Screen, Urine NEGATIVE (NEGATIVE); Cocaine Screen, Urine NEGATIVE (NEGATIVE); Opiate Scree,Urine NEGATIVE (NEGATIVE); Phencyclidine Screen, Urine NEGATIVE (NEGATIVE)
[2020-09-02 19:28] LABS: Urine Bacteria NONE SEEN /hpf (None Seen); Urine Blood Negative /uL (Negative); Urine Mucus FEW (None Seen); Urine Specific Gravity 1.015 (1.001-1.035); Urine WBC <1 /hpf (0 - 3)
[2020-09-02 19:39] VITALS: BP 178/77
[2020-09-02 19:51] LABS: Cholesterol 96 mg/dL (< 200)
[2020-09-02 19:54] LABS: HDL Cholesterol 52 mg/dL (40-59); LDL Cholesterol 39 mg/dL (< 100); Triglycerides 55 mg/dL (< 150)
[2020-09-02] MEDS ORDERED: VANCOMYCIN 1GM/250ML 250 ML IV ONE (20:00)
[2020-09-02] MEDS ORDERED: amLODIPine BESYLATE 5 MG TAB PO ONE (21:00)
[2020-09-02] MEDS ORDERED: hydrALAZINE HCL 25 MG TAB PO PRN (21:00)
[2020-09-02] MEDS ORDERED: dilTIAZem 120MG ER CAP PO ONE (21:00)
[2020-09-02] MEDS: ATORVASTATIN 20 MG TAB PO SCH (21:38)
[2020-09-02] MEDS: MONTELUKAST SODIUM 10 MG TAB PO SCH (21:39)
[2020-09-02] MEDS: BUDESONIDE (INHALATION) 180 MCG IH IN SCH (22:00)
[2020-09-02] MEDS: ALBUTEROL SULF HFA 90MCG INH 200DOSE IN SCH (22:00)
[2020-09-02 22:32] LABS: Lactic Acid w/Reflex 2.1 mmol/L (0.4-2.0)
[2020-09-02 22:50] VITALS: BP 125/64
--- NOTE | 2020-09-02 22:50 | NUR ---
Telemetry admit from ER [facility] P[facility]REZ admitted to Telemetry unit. No SBAR from ED. Patient oriented to WILI DAVIS, RN primary RN, MST unit, room 233, and unit policies regarding patient care and visiting hours. Patient now on continuous telemetry monitoring, tele box 12 and telemetry reading on arrival to unit is sinus rhythm in the 70s. Patient placed on bedside oxygen, weighed by bed scale and encouraged to call if they need something. All questions and concerns addressed, patient verbalized understanding. Note: Patient able to turn in bed independently, bed in lowest locked position, side rails up x2, and call light within reach. Will continue to monitor Q1HR PRN.
[2020-09-02 23:15] VITALS: BP 125/64
[2020-09-03] MEDS: PIPERACILLIN-TAZOB 3.375GM 100 ML IV SCH ×2 (00:37→06:37)
[2020-09-03 05:00] VITALS: BP 130/63
[2020-09-03] MEDS ORDERED: VANCOMYCIN 1GM/250ML 250 ML IV ONE (05:00)
[2020-09-03] MEDS: LEVOTHYROXINE SODIUM 50 MCG TAB PO SCH (06:36)
[2020-09-03] MEDS: ALBUTEROL SULF HFA 90MCG INH 200DOSE IN SCH ×3 (06:40→22:30)
[2020-09-03] MEDS: BUDESONIDE (INHALATION) 180 MCG IH IN SCH ×2 (06:40→22:30)
[2020-09-03] MEDS ORDERED: ENOXAPARIN SOD 100 MG/1 ML SYRINGE SC SCH (07:00)
[2020-09-03 09:00] VITALS: BP 143/68
[2020-09-03 09:41] LABS: Basophils # (auto) 0 10 ^3/uL (0-0.2); Basophils % (auto) 0.3 % (0.0-2.0); Eosinophils # (auto) 0 10 ^3/uL (0-0.8); Hematocrit 40.5 % (41.0-53.0); Hemoglobin 13.6 g/dL (13.5-17.5); Lymphocytes # (auto) 0.7 10 ^3/uL (0.4-5.4); Lymphocytes % (auto) 10.1 % (10.0-50.0); Mean Corpuscular Hemoglobin 30.8 pg (28.0-32.0); Mean Corpuscular Hgb Conc. 33.7 g/dL (32.0-36.0); Mean Corpuscular Volume 91.4 fL (80.0-100.0); Monocytes # (auto) 0.3 10 ^3/uL (0-1.3); Monocytes % (auto) 4.1 % (0.0-12.0); Neutrophils # (auto) 5.9 10 ^3/uL (1.6-8.6); Neutrophils % (auto) 85.5 % (37.0-80.0); Platelet Count (auto) 123 10^3/uL (140-450); Red Blood Cells 4.43 10^6/uL (4.5-5.90); Red Cell Distribution Width 13.3 % (11.8-14.3); White Blood Cell 6.9 10^3/uL (4.4-10.8)
[2020-09-03 10:00] LABS: Albumin 3.5 g/dL (3.4-5.0); Calcium 8.4 mg/dL (8.5-10.1); Potassium 3.7 mmol/L (3.5-5.1)
[2020-09-03] MEDS: CHOLECALCIFEROL (VITD3) 2,000 UNIT CAP PO SCH (10:00)
[2020-09-03 10:06] LABS: BUN/Creatinine Ratio 17.9; Bilirubin, Total 0.8 mg/dL (0.2-1.0)
[2020-09-03 12:45] VITALS: BP 151/76
[2020-09-03] MEDS ORDERED: IOHEXOL 350 MG/ML 100ML IJ ONE (12:56)
[2020-09-03] MEDS: DexAMETHasone SOD PHOS 10MG/1ML VIAL INJ IV SCH (13:19)
[2020-09-03] MEDS: ASPirin 81 mg TAB PO SCH (13:19)
[2020-09-03] MEDS: ZINC SULFATE 220mg CAP or TAB PO SCH (13:20)
[2020-09-03] MEDS: dilTIAZem HCL 180MG ER CAP PO SCH (13:22)
[2020-09-03] MEDS: amLODIPine BESYLATE 5 MG TAB PO SCH (13:23)
[2020-09-03] MEDS: ASCORBIC ACID 1,000 MG TAB PO SCH (13:24)
[2020-09-03] MEDS ORDERED: FUROSEMIDE 40 MG/4 ML VIAL IV ONE (13:30)
[2020-09-03] MEDS ORDERED: DOXYCYCLINE 100MG/250ML 250 ML IV ONE (13:30)
[2020-09-03 16:38] VITALS: BP 142/69
[2020-09-03] MEDS: TAMSULOSIN HYDROCHLORIDE 0.4 MG CAP PO SCH (19:06)
[2020-09-03] MEDS: ENOXAPARIN SOD 60 MG/0.6 ML SYRINGE SC SCH (19:06)
--- NOTE | 2020-09-03 19:30 | NUR ---
Opening Shift Note Assumed care of patient, awake and alert x3, patient easily reoriented to time, will continue to reorient patient as needed and throughout shift. Patient denies pain or shortness of breath at this time. No sign/symptoms of distress noted or verbalized at this time. Instructed on plan of care and encouraged patient to call for assistance as needed, patient verbalized understanding. Bed is locked in lowest position, side rails x 2 are up, call light is within reach, and bed alarm is on.
[2020-09-03 22:00] VITALS: BP 145/60
[2020-09-03] MEDS: ATORVASTATIN 20 MG TAB PO SCH (22:13)
[2020-09-03] MEDS: MONTELUKAST SODIUM 10 MG TAB PO SCH (22:13)
[2020-09-03] MEDS: DOXYCYCLINE 100MG/250ML 250 ML IV SCH (22:13)
[2020-09-04] VITALS (8 sets, daily range): BP systolic 122–149; BP diastolic 62–86
--- NOTE | 2020-09-04 02:00 | NUR ---
Patient Placed on Oxygen Patient's oxygen saturation sustaining at 89%. Patient placed on 2L/min NC, SPO2 increased to 93%. No sign/symptoms of distress noted or verbalized at this time.
[2020-09-04] MEDS: ENOXAPARIN SOD 60 MG/0.6 ML SYRINGE SC SCH ×2 (06:16→18:18)
[2020-09-04] MEDS: LEVOTHYROXINE SODIUM 50 MCG TAB PO SCH (06:16)
[2020-09-04] MEDS: BUDESONIDE (INHALATION) 180 MCG IH IN SCH ×2 (06:50→21:43)
[2020-09-04] MEDS: ALBUTEROL SULF HFA 90MCG INH 200DOSE IN SCH ×3 (06:50→21:43)
[2020-09-04] MEDS ORDERED: FUROSEMIDE 40 MG/4 ML VIAL IV ONE (09:15)
[2020-09-04] MEDS: DexAMETHasone SOD PHOS 10MG/1ML VIAL INJ IV SCH (09:20)
[2020-09-04] MEDS: dilTIAZem HCL 180MG ER CAP PO SCH (09:27)
--- NOTE | 2020-09-04 09:30 | NUR ---
STATUS CHANGE SUMMARY PATIENT C/O CHEST PAIN 04/21, POINTING TO CENTER OF CHEST STATING IT RADIATED TO LOWER BACK, PATIENT IS ANXIOUS, FIDGETY, AND TALKATIVE. EKG PERFORMED AND READ BY CAITY MATA. ESPERANZA AT BEDSIDE ASSESSING PATIENT. BLOOD PRESSURE 176/88 HEART RATE 114, PATIENT TACHYPNEA 30 RESPIRATION PATIENT NOT TOLERATING OXYMIZER AND PLACED ON SIMPLE MASK AND SATURATING 84-89%, RT PAGED. PATIENT GIVEN ONE OF NITRO (SEE EMAR) PATIENT STATED RELIEF OF CHEST PAIN. DOCTOR MODESTA INFORMED OF PATIENT STATUS. NEW ORDERS RECEIVED, SEE EMR FOR ORDERS.
[2020-09-04] MEDS ORDERED: FUROSEMIDE 40 MG/4 ML VIAL IV SCH (10:00)
--- NOTE | 2020-09-04 10:15 | NUR ---
Respiratory note: CALLED TO PATIENTS ROOM FOR DESAT. PATIENT HAD PREVIOUSLY BEEN PLACED ON 11LPM OXYMIZER BUT WAS FOUND ON A 10LPM SIMPLE MASK ON ARRIVAL, WITH SPO2 OF 74%. PATIENT WAS SOB AND HAD AN INCREASE IN WOB, LUNG SOUNDS WERE WET CRACKLES T/O. HE WAS PLACED ON A 15LPM NRB AND SPO2 INCREASED TO 94%. ABG WAS DRAWN FOR RESPIRATORY DISTRESS.
[2020-09-04] MEDS: CHOLECALCIFEROL (VITD3) 2,000 UNIT CAP PO SCH (11:08)
[2020-09-04] MEDS: ASCORBIC ACID 1,000 MG TAB PO SCH (11:08)
[2020-09-04] MEDS: ASPirin 81 mg TAB PO SCH (11:08)
[2020-09-04] MEDS: amLODIPine BESYLATE 5 MG TAB PO SCH (11:10)
[2020-09-04] MEDS: DOXYCYCLINE 100MG/250ML 250 ML IV SCH ×2 (11:11→21:53)
[2020-09-04] MEDS: ZINC SULFATE 220mg CAP or TAB PO SCH (11:12)
[2020-09-04] MEDS: MORPHINE SULF INJ 2 MG/ML SYRINGE 1ML IV PRN (11:12)
[2020-09-04] MEDS ORDERED: POTASSIUM CHL 20 Meq TABLET PO ONE (12:30)
[2020-09-04] MEDS ORDERED: CLOPIDOGREL BISULFATE 75 MG TAB PO ONE (12:30)
--- NOTE | 2020-09-04 15:00 | NUR ---
Davis catheter insertion Patient assessed and determined to be in need of davis catheter. Order obtained from MD. Patient educated on catheter and reason for insertion. All questions answered. Davis catheter 16 guage Turkish inserted with clean sterile technique. Patient tolerated well.
[2020-09-04] MEDS: TAMSULOSIN HYDROCHLORIDE 0.4 MG CAP PO SCH (18:10)
[2020-09-04] MEDS: FUROSEMIDE 40 MG/4 ML VIAL IV SCH (18:12)
--- NOTE | 2020-09-04 19:25 | NUR ---
Opening Shift Note Assumed care of patient, awake and alert x3, patient easily reoriented to time, will continue to reorient patient as needed and throughout shift. Patient denies pain at this time. Patient reports shortness of breath with exertion. Patient denies shortness of breath at this time. Patient is on 15L/min nonrebreather, SPO2: 91% at this time. No sign/symptoms of distress noted or verbalized at this time. Instructed on plan of care and encouraged patient to call for assistance as needed, patient verbalized understanding. Bed is locked in lowest position, side rails x 2 are up, call light is within reach, and bed alarm is on.
[2020-09-04] MEDS: METOPROLOL TARTRATE 25 MG TAB PO SCH (21:53)
[2020-09-04] MEDS: MONTELUKAST SODIUM 10 MG TAB PO SCH (21:54)
[2020-09-04] MEDS: ATORVASTATIN 20 MG TAB PO SCH (21:54)
--- NOTE | 2020-09-04 22:10 | NUR ---
Spoke with Hospitalist RE: Lung Sounds CAITY Desai made aware that patient has crackles throughout his lungs. CAITY Desai also made aware that patient is coughing up red tinged sputum. Orders received, read back, and verified. Will carry out orders as received (see eMAR). Addendum: 09/05/20 at 0607 by GERRY KIRKLAND RN RN see REYES
[2020-09-05] MEDS ORDERED: FUROSEMIDE 40 MG/4 ML VIAL IV ONE (00:30)
[2020-09-05] MEDS: MORPHINE SULF INJ 2 MG/ML SYRINGE 1ML IV PRN ×2 (01:24→09:47)
[2020-09-05 02:19] VITALS: BP 140/60
--- NOTE | 2020-09-05 02:25 | NUR ---
Spoke with Hospitalist RE: Increased Work of Breathing CAITY Desai made aware that patient is having increased work of breathing:respirations 36 with SPO2 sustaining between 87-89% on 15L/min nonrebreather. Orders received from CAITY Desai to have respiratory therapist assess the patient. Will follow through with order.
--- NOTE | 2020-09-05 03:20 | NUR ---
RT AT BEDSIDE RT at bedside assessing patient. Patient placed on BIPAP due to oxygen saturation sustaining between 85-88% on 15L/min nonrebreather with increased work of breathing. Patient's oxygen saturation is now 95% on BIPAP, FIO2: 100%.
--- NOTE | 2020-09-05 03:20 | NUR ---
PLACED PT ON BIPAP DUE TO EXCESSIVE WOB. BIPAP CONNECTED TO RED OUTLET AND O2 SOURCE ALARMS ARE SET AND AUDIBLE. NO BREAKDOWN NOTED PRIOR TO PLACEMENT. RN GERRY AWARE OF PLACEMENT.
[2020-09-05] MEDS: LORazepam 0.5 MG TAB PO PRN (03:34)
[2020-09-05 05:00] VITALS: BP 150/62
[2020-09-05] MEDS: ALBUTEROL SULF HFA 90MCG INH 200DOSE IN SCH ×3 (06:00→22:33)
[2020-09-05] MEDS: LEVOTHYROXINE SODIUM 50 MCG TAB PO SCH ×2 (06:38→07:00)
[2020-09-05] MEDS: FUROSEMIDE 40 MG/4 ML VIAL IV SCH ×2 (06:38→17:56)
[2020-09-05] MEDS: ENOXAPARIN SOD 60 MG/0.6 ML SYRINGE SC SCH ×2 (06:39→17:56)
--- NOTE | 2020-09-05 06:40 | NUR ---
Patient Refusing Morning PO Medication Attempted to give patient his scheduled PO morning medication. Patient refused to take medication and stated "let me sleep," educated patient on the importance of taking his scheduled PO medication, patient continued to refuse and continue to state "let me sleep." Patient is currently laying in bed, eyes closed, on BIPAP, FIO2 100%, SPO2: 94% at this time. Bed is locked in lowest position, side rails x3 are up, call light is within reach, and bed alarm is on.
[2020-09-05] MEDS: ALBUTEROL SULF 2.5 MG/0.5ML(0.5%) NEB SOLN NEB PRN ×3 (06:42→22:34)
[2020-09-05] MEDS: BUDESONIDE (INHALATION) 180 MCG IH IN SCH ×2 (06:43→22:33)
[2020-09-05 07:11] LABS: Basophils # (auto) 0 10 ^3/uL (0-0.2); Eosinophils # (auto) 0 10 ^3/uL (0-0.8); Hematocrit 43.3 % (41.0-53.0); Hemoglobin 14.7 g/dL (13.5-17.5); Lymphocytes # (auto) 0.4 10 ^3/uL (0.4-5.4); Lymphocytes % (auto) 2.1 % (10.0-50.0); Mean Corpuscular Hgb Conc. 33.9 g/dL (32.0-36.0); Mean Corpuscular Volume 91.3 fL (80.0-100.0); Monocytes # (auto) 0.9 10 ^3/uL (0-1.3); Monocytes % (auto) 4.8 % (0.0-12.0); Neutrophils # (auto) 17.6 10 ^3/uL (1.6-8.6); Neutrophils % (auto) 93.1 % (37.0-80.0); Platelet Count (auto) 152 10^3/uL (140-450); Red Blood Cells 4.75 10^6/uL (4.5-5.90); Red Cell Distribution Width 13.3 % (11.8-14.3); White Blood Cell 18.9 10^3/uL (4.4-10.8)
[2020-09-05] MEDS ORDERED: LORazepam 2MG/ML-1ML VIAL ONE ×2 (07:27→10:15)
[2020-09-05] MEDS ORDERED: LORazepam 2MG/ML-1ML VIAL IV PRN (07:30)
--- NOTE | 2020-09-05 07:35 | NUR ---
Confirmed Code Status Confirmed code status with daughter Venecia over the phone. Venecia confirmed she wants her father to be a DNR/DNI. Code status confirmed by second RN Gordy over the phone.
--- NOTE | 2020-09-05 07:37 | NUR ---
PATIENT AGITATION: PATIENT PULLED OFF BIPAP MACHINE, PATIENTS OXYGEN SATURATIONS DROPPING DOWN TO 760-70% O2 SATURATIONS. PATIENT EXTREMELY AGITATED AND ATTEMPTING TO HIT THIS RN AND RN GERRY WHILE ATTEMPTING TO PLACE PATIENT ON NONREBREATHER. PATIENT GIVEN ATIVAN 1MG PER M.D. ORDERS. PATIENT CALM WITH NON-REBREATHER ON AT THIS TIME. PATIENTS OXYGEN SATURATIONS AT 52%. PATIENT PLACED BACK ON BIPAP WITH OXYGEN SATURATIONS AT 82-85%. PATIENT RESTING COMFORTABLY.
--- NOTE | 2020-09-05 07:45 | NUR ---
Agitation This RN was called to the bedside by RT due to the patient waking up agitated and ripping off his BIPAP at approximately 07:10. Upon entering room patient was found agitated in bed with oxygen saturation in the 50s on room air. Upon attempting to place nonrebreather on patient, patient began to swing at this RN and Gordy KEARNS. Hospitalist was paged and updated on patient status. Orders for agitation was received (see EMR). Patient was medicated for agitation and patient was placed back on BIPAP. Venecia (daughter) was called and updated on patient status. Patient is now on BIPAP, FIO2: 100%, SPO2: 90% at this time. Patient care has been endorsed to Gordy KEARNS.
[2020-09-05 07:48] LABS: Albumin 3.3 g/dL (3.4-5.0); BUN/Creatinine Ratio 24.4; Bilirubin, Total 0.8 mg/dL (0.2-1.0); CRP High Sensitivity 11.7 mg/dL (< 0.3); Calcium 8.3 mg/dL (8.5-10.1); Total Protein 6.7 g/dL (6.4-8.2)
[2020-09-05 08:00] VITALS: BP 143/79
--- NOTE | 2020-09-05 09:00 | NUR ---
COOLING MEASURES APPLIED FOR PATIENT HE IS ON BIPAP AND UNABLE TO SWALLOW MEDICATIONS AT THIS TIME. TEMPERATURE RECHECK OF 100.2 AXILLARY. INFORMED Ghazala COATS.
--- NOTE | 2020-09-05 09:06 | NUR ---
RECEIVED NEW ORDERS FROM Ghazala COATS. SEE EMAR. WILL FOLLOW THROUGH.
[2020-09-05] MEDS ORDERED: PIPERACILLIN-TAZOB 3.375GM 100 ML IV ONE (09:15)
[2020-09-05] MEDS ORDERED: ACETAMINOPHEN 650 MG RECT SUPP PR PRN (09:15)
[2020-09-05] MEDS: POTASSIUM CHL 20 Meq TABLET PO SCH (10:00)
[2020-09-05] MEDS: METOPROLOL TARTRATE 25 MG TAB PO SCH ×2 (10:00→22:00)
[2020-09-05] MEDS: CLOPIDOGREL BISULFATE 75 MG TAB PO SCH (10:00)
[2020-09-05] MEDS: ASPirin 81 mg TAB PO SCH (10:00)
[2020-09-05] MEDS: CHOLECALCIFEROL (VITD3) 2,000 UNIT CAP PO SCH (10:00)
[2020-09-05] MEDS: ZINC SULFATE 220mg CAP or TAB PO SCH (10:00)
[2020-09-05] MEDS: dilTIAZem HCL 180MG ER CAP PO SCH (10:00)
[2020-09-05] MEDS: ASCORBIC ACID 1,000 MG TAB PO SCH (10:00)
[2020-09-05] MEDS ORDERED: LORazepam 2MG/ML-1ML VIAL IV ONE (10:15)
--- NOTE | 2020-09-05 10:20 | NUR ---
REGARDING AGITATION: PATIENT STARTING TO BECOME AGITATED AGAIN AT THIS TIME. PATIENT PULLING OFF BIPAP MACHINE AND ATTEMPTING TO PUNCH AND KICK THIS RN. RN BETSEY AND ROCK CUTTER JULIOCESAR AT BEDSIDE ATTEMPTING TO ASSIST IN CALMING PATIENT. PATIENT EXTREMELY AGITATED. CALLED Ghazala [employer]ATS AND RECEIVED NEW ORDERS. WILL MEDICATE ORDERED. SEE EMAR. WILL FOLLOW THROUGH.
[2020-09-05] MEDS: DexAMETHasone SOD PHOS 10MG/1ML VIAL INJ IV SCH (10:33)
--- NOTE | 2020-09-05 11:05 | NUR ---
ANTIBIOTIC STARTED AFTER COLLECTION OF BLOOD CULTURES.
[2020-09-05 12:00] VITALS: BP 114/62
--- NOTE | 2020-09-05 12:01 | NUR ---
Ghazala BERGER AT [email or web address] [facility]. INFORMED OF PATIENT STATUS INCLUDING PATIENTS FEVER THIS MORNING OF 102.8. INFORMED OF PATIENTS WBC INCREASING FROM 6.9 TO 18.9 AND OF PATIENTS ALOC. INFORMED TO CONTINUE CURRENT THERAPY. NO NEW ORDERS RECEIVED. Addendum: 09/05/20 at 1804 by HIRAM HEATH RN RN INFORMED THAT PATIENT IS NOT ABLE TO SWALLOW MEDICATIONS AT THIS TIME.
--- NOTE | 2020-09-05 12:07 | NUR ---
PATIENT DAUGHTER AND SON AT BEDSIDE. PATIENT IN HIGH FOWLERS. RESPIRATIONS EVEN AND UNLABORED, ON BIPAP MACHINE.
--- NOTE | 2020-09-05 13:21 | NUR ---
FAMILY LEAVING BEDSIDE AT THIS TIME. ESCORTED BY STAFF AND INSTRUCTED TO DOFF USING PROPER TECHNIQUE. ESCORTED TO MAIN LOBBY BY STAFF.
[2020-09-05 16:58] VITALS: BP 121/68
[2020-09-05] MEDS: TAMSULOSIN HYDROCHLORIDE 0.4 MG CAP PO SCH (17:51)
[2020-09-05] MEDS: PIPERACILLIN-TAZOB 3.375GM 100 ML IV SCH (17:56)
--- NOTE | 2020-09-05 19:14 | NUR ---
Opening Shift Note Assumed care of patient, patient resting with eyes closed at this time. Patient on BIPAP, with even and unlabored respirations, no S/S of distress/SOB or pain. Bed in lowest locked position, side rails up x2, and call light within reach. Instructed on POC and to call for assist PRN, will continue to monitor for changes Q1hr and PRN.
[2020-09-05 21:36] VITALS: BP 126/61
[2020-09-05] MEDS: ATORVASTATIN 20 MG TAB PO SCH (22:00)
[2020-09-05] MEDS: MONTELUKAST SODIUM 10 MG TAB PO SCH (22:00)
[2020-09-06] MEDS: PIPERACILLIN-TAZOB 3.375GM 100 ML IV SCH ×4 (00:10→17:00)
[2020-09-06] MEDS: MORPHINE SULF INJ 2 MG/ML SYRINGE 1ML IV PRN (04:42)
[2020-09-06 05:05] VITALS: BP 140/68
[2020-09-06] MEDS: ALBUTEROL SULF HFA 90MCG INH 200DOSE IN SCH ×3 (05:55→22:43)
[2020-09-06] MEDS: FUROSEMIDE 40 MG/4 ML VIAL IV SCH ×2 (06:01→16:59)
[2020-09-06] MEDS: LEVOTHYROXINE SODIUM 50 MCG TAB PO SCH (06:59)
[2020-09-06] MEDS: ENOXAPARIN SOD 60 MG/0.6 ML SYRINGE SC SCH ×2 (06:59→18:01)
--- NOTE | 2020-09-06 07:30 | NUR ---
Opening Shift Note Assumed care of patient, Patient currently sleeping, eyes closed, easily awakened via verbal stimuli, AxOx3, currently on Bi-Pap. No S/S of distress/SOB or pain noted at this time, call light within reach, pt able to demonstrate how to use call light, bed alarm on and bed positioned low, aspiration precautions in place . Instructed on POC and to call for assist PRN, will continue to monitor for changes Q1hr and PRN.
[2020-09-06 08:00] VITALS: BP_SYST 128; BP_DIAS 62; BP_DIAS 68
[2020-09-06 08:27] LABS: Basophils # (auto) 0 10 ^3/uL (0-0.2); Eosinophils # (auto) 0 10 ^3/uL (0-0.8); Hematocrit 44.8 % (41.0-53.0); Hemoglobin 15.1 g/dL (13.5-17.5); Lymphocytes # (auto) 0.6 10 ^3/uL (0.4-5.4); Lymphocytes % (auto) 3.3 % (10.0-50.0); Mean Corpuscular Hemoglobin 30.7 pg (28.0-32.0); Mean Corpuscular Hgb Conc. 33.6 g/dL (32.0-36.0); Mean Corpuscular Volume 91.4 fL (80.0-100.0); Monocytes # (auto) 0.8 10 ^3/uL (0-1.3); Monocytes % (auto) 4.9 % (0.0-12.0); Neutrophils # (auto) 15.7 10 ^3/uL (1.6-8.6); Neutrophils % (auto) 91.8 % (37.0-80.0); Platelet Count (auto) 172 10^3/uL (140-450); Red Cell Distribution Width 13.6 % (11.8-14.3); White Blood Cell 17.1 10^3/uL (4.4-10.8)
[2020-09-06 08:37] LABS: Potassium 3.6 mmol/L (3.5-5.1)
[2020-09-06 08:48] LABS: Albumin 3.2 g/dL (3.4-5.0); BUN/Creatinine Ratio 24.8; Bilirubin, Total 1.1 mg/dL (0.2-1.0); Calcium 8.6 mg/dL (8.5-10.1); Total Protein 7.3 g/dL (6.4-8.2)
[2020-09-06] MEDS: BUDESONIDE (INHALATION) 180 MCG IH IN SCH ×2 (09:06→22:43)
[2020-09-06] MEDS: DexAMETHasone SOD PHOS 10MG/1ML VIAL INJ IV SCH (09:24)
[2020-09-06] MEDS: ZINC SULFATE 220mg CAP or TAB PO SCH (09:25)
[2020-09-06] MEDS: ASPirin 81 mg TAB PO SCH (09:25)
[2020-09-06] MEDS: dilTIAZem HCL 180MG ER CAP PO SCH (09:26)
[2020-09-06] MEDS: CLOPIDOGREL BISULFATE 75 MG TAB PO SCH (09:26)
[2020-09-06] MEDS: CHOLECALCIFEROL (VITD3) 2,000 UNIT CAP PO SCH (09:27)
[2020-09-06] MEDS: ASCORBIC ACID 1,000 MG TAB PO SCH (09:27)
[2020-09-06] MEDS: METOPROLOL TARTRATE 25 MG TAB PO SCH ×2 (09:28→22:28)
[2020-09-06] MEDS: POTASSIUM CHL 20 Meq TABLET PO SCH (09:47)
--- NOTE | 2020-09-06 09:47 | NUR ---
MEDICATION HELD POTASSIUM HELD, MEDICATION PILLS ARE TOO LARGE TO SWALLOW AND PATIENT PENDING SWALLOW EVAL TO R/O ASPIRATION SINCE PT COUGHS AFTER DRINKING WATER, CONT CARE
--- NOTE | 2020-09-06 11:25 | NUR ---
AT BEDSIDE DR BYERS AT BEDSIDE, MD AWARE LARGER MEDICATION PILLS WERE HELD R/T POSSIBLE ASPIRATION AND HARD TIME SWALLOWING, PENDING A SWALLOW EVALUATION, MD ALSO NOTIFIED ALATORRE CATH LEAKING, MD STATES " ITS VERY DIFFICULT TO INSERT ALATORRE", ORDERED A UROLOGY CONSULT, [facility]
[2020-09-06 12:00] VITALS: BP 126/65
--- NOTE | 2020-09-06 12:38 | NUR ---
UROLOGY SPOKE WITH REDD (MECHANICAL SYSTEM TECHNICIAN) FROM UROLOGY, UPDATED ON REASONING FOR CONSULT, STATES " LEAVE CURRENT ALATORRE IN, WHEN THE PATIENT IS READY TO BE DISCHARGED I CAN COME INSERT A 20FR SO PT CAN GO HOME WITH THAT ONE, FOR NOW JUST PUT A TOWEL AROUND SINCE ITS LEAKING", CONT CARE
--- NOTE | 2020-09-06 14:26 | NUR ---
Nutrition Assessment/Consult Notes Please refer to link for full assessment notes. Est Energy needs: [id number] kcals (20-23 kcal/kgBW) Est Protein needs: 68-75 gms/day (1.0-1.1 gm/kgBW) Will continue to monitor and reassess prn. Addendum: 09/06/20 at [address] Amended: Links added.
--- NOTE | 2020-09-06 15:06 | NUR ---
Pt is alert but currently on 15 nrb and is unable to particpate in ss assessment. Spoke with daughter who confirmed that patient resides with family and functioned independently prior to admission. Tentative plan is for patient to return home but it will need to be reassessed once patient became more stable. Will follow up and provide intervention as appropriate. Addendum: 09/06/20 at 1520 by TITA THACKER SS Amended: Links added.
[2020-09-06 16:00] VITALS: BP 119/60
[2020-09-06] MEDS: TAMSULOSIN HYDROCHLORIDE 0.4 MG CAP PO SCH (17:00)
--- NOTE | 2020-09-06 17:04 | NUR ---
SWALLOW EVALUATED. PATIENT HAS NO TEETH OR DENTURES. PATIENT ALERT AND ABLE TO FOLLOW COMMANDS. PATIENT ABLE TO TOLERATE PUREE DIET TEXTURE WITH NECTAR THICKENED LIQUIDS WITH NO OVERT SIGNS OR SYMPTOMS OF ASPIRATION. PATIENT COUGHED ON TRIAL OF THIN LIQUIDS. NURSING REPORTS PATIENT COUGHED ON THIN LIQUIDS PREVIOUSLY. PATIENT REPORTED TO NURSING THAT HE OFTEN COUGHS ON THIN LIQUIDS. SPEECH THERAPIST EXPLAINED NORMAL SWALLOW AND REASONING FOR NECTAR THICKENED LIQUIDS WELL WHERE TO PURCHASE THICKENER ON DISCHARGE. NURSING NOTIFIED.
--- NOTE | 2020-09-06 18:20 | NUR ---
ASPIRATION PRECAUTIONS IN PLACE PT SAT UP IN BED, WITH PILLOWS USED TO PROMPT HIM HIGH POSSIBLE, O2 CHANGED TO 15L VIA OXYMIZER WHILE PATIENT IS EATING, WILL MONITOR CLOSELY FOR O2 DROP, NO DISTRESS NOTED AT THIS TIME, CONT CARE
--- NOTE | 2020-09-06 19:14 | NUR ---
Opening Shift Note Assumed care of patient, awake, alert and oriented x4, on 15L of oxygen via nonrebreather with even and unlabored respirations, no S/S of distress/SOB or pain. Patient able to turn in bed independently, bed in lowest locked position, side rails up x2, and call light within reach. Instructed on POC and to call for assist PRN, will continue to monitor for changes Q1hr and PRN.
[2020-09-06 22:00] VITALS: BP 138/80
[2020-09-06] MEDS: ATORVASTATIN 20 MG TAB PO SCH (22:27)
[2020-09-06] MEDS: MONTELUKAST SODIUM 10 MG TAB PO SCH (22:28)
[2020-09-07] MEDS: PIPERACILLIN-TAZOB 3.375GM 100 ML IV SCH ×4 (00:28→17:58)
[2020-09-07 05:09] VITALS: BP 128/80
[2020-09-07] MEDS: FUROSEMIDE 40 MG/4 ML VIAL IV SCH ×2 (06:08→17:58)
[2020-09-07] MEDS: ENOXAPARIN SOD 60 MG/0.6 ML SYRINGE SC SCH ×2 (06:44→17:59)
[2020-09-07] MEDS: LEVOTHYROXINE SODIUM 50 MCG TAB PO SCH (06:44)
[2020-09-07] MEDS: ALBUTEROL SULF HFA 90MCG INH 200DOSE IN SCH ×3 (06:56→21:21)
[2020-09-07] MEDS: BUDESONIDE (INHALATION) 180 MCG IH IN SCH ×2 (06:57→21:22)
[2020-09-07 08:33] VITALS: BP 135/59
[2020-09-07] MEDS: DexAMETHasone SOD PHOS 10MG/1ML VIAL INJ IV SCH (09:49)
[2020-09-07] MEDS: ASPirin 81 mg TAB PO SCH (09:49)
[2020-09-07] MEDS: ZINC SULFATE 220mg CAP or TAB PO SCH (09:50)
[2020-09-07] MEDS: POTASSIUM EFFERVESENT TAB 25 MEQ PO SCH (09:54)
[2020-09-07] MEDS: CHOLECALCIFEROL (VITD3) 2,000 UNIT CAP PO SCH (09:55)
[2020-09-07] MEDS: CLOPIDOGREL BISULFATE 75 MG TAB PO SCH (09:55)
[2020-09-07] MEDS: METOPROLOL TARTRATE 25 MG TAB PO SCH ×2 (09:55→22:00)
[2020-09-07] MEDS: ASCORBIC ACID 1,000 MG TAB PO SCH (09:55)
[2020-09-07] MEDS: dilTIAZem HCL 180MG ER CAP PO SCH (10:00)
--- NOTE | 2020-09-07 10:17 | NUR ---
Medications held Held metoprolol and cardizem; HR:54 BP: 135/59. Dr. Luda ford.
--- NOTE | 2020-09-07 12:00 | NUR ---
Respiratory note: PATIENT RE-EDUCATED ON IMPORTANCE OF SELF PRONING. HE STATES HE WILL PERIODICALLY ATTEMPT TO PRONE.
[2020-09-07 12:28] VITALS: BP 130/64
--- NOTE | 2020-09-07 13:10 | NUR ---
Full linen change done Found patient laying in damp sheets. Noted davis catheter leaking. Per MD orders, leave davis in place. Bed bath and full linen change done. Patient able to assist and turn in bed with minimal assistance. Patient tolerated well. Bed is low, locked with 2x side rails up. Call light is within reach. Will continue to monitor Q1hr and PRN.
[2020-09-07 17:00] VITALS: BP 145/72
[2020-09-07] MEDS: TAMSULOSIN HYDROCHLORIDE 0.4 MG CAP PO SCH (17:59)
--- NOTE | 2020-09-07 19:15 | NUR ---
OPENING NOTE- NOC SHIFT PATIENT IS SITTING UP IN BED HIGH FOWLERS, NON REBREATHER MASK ON AT 15L CURRENT O2 SAT IS 96%. PATIENT ANSWERS IN COMPLETE SENTENCES AND MAKES APPROPRIATE EYE CONTACT. NO COUGH NOTED. NO S/SX OF DISTRESS OR SOB. PATIENT DENIES PAIN AT THIS TIME. DISCUSSED POC WITH PATIENT AND INSTRUCTED PATIENT TO CALL PRN; PATIENT VERBALIZED AND DEMONSTRATED UNDERSTANDING. BEDSIDE TABLE WITHIN REACH, CALL LIGHT WITHIN REACH. PATIENT IS ON CONTINUOUS EKG AND PULSE OX MONITOR.
--- NOTE | 2020-09-07 19:33 | NUR ---
CALL FROM GRANDDAUGHTER RAJI. RAJI WAS UPDATED WITH PATIENT STATUS AND POC AFTER VERIFYING ACCOUNT PASSWORD.
[2020-09-07] MEDS: MONTELUKAST SODIUM 10 MG TAB PO SCH (22:00)
[2020-09-07] MEDS: ATORVASTATIN 20 MG TAB PO SCH (22:00)
--- NOTE | 2020-09-07 22:25 | NUR ---
PAGED HOSPITALIST PATIENT IS AGITATED AND CONFUSED. PULLING OF NON REBREATHER MASK O2 SAT DROPPING TO 60s DNR FORM NOT SIGNED IN HARD CHART. ATIVAN IS IN PO FORM IN eMAR.
[2020-09-07] MEDS ORDERED: LORazepam 2MG/ML-1ML VIAL IV ONE (22:30)
--- NOTE | 2020-09-07 23:25 | NUR ---
DNR REVOKED BY DAUGHTER MICHELLE [phone] CALLED MICHELLE REGARDING STATUS OF PATIENT. MADE MICHELLE AWARE THAT PATIENT IS PULLING OFF NON REBREATHER MASK AND O2 SAT ARE DROPPING. MADE MICHELLE AWARE THAT PATIENT IS COMBATIVE, CONFUSED AND RESISTING CARE. MICHELLE STATED THAT SHE WANTS DNR REVOKED AND WANTS EVERYTHING DONE TO SAVE HER FATHER; INCLUDING INTUBATION AND MECHANICAL VENTILATION. SECOND NURSE URMILA GARRETT WITNESSED CONVERSATION INCLUDING MICHELLE'S STATEMENT TO REVOKE DNR. MADE CHARGE NURSE CYRIL KEARNS AWARE.
--- NOTE | 2020-09-07 23:30 | NUR ---
Respiratory note: AT BEDSIDE, PT SPO2 READING 86%. FOUND PT WITH NRB MASK OFF. PT REFUSING TO WEAR MASK. EXPLAINED TO PATIENT MULTIPLE TIMES THE IMPORTANCE OF WEARING THE MASK. PT REFUSED AND BECAME COMBATIVE. PT SPO2 NOTED AT 60%. PT AGREED TO WEAR MASK AGAIN, MADE AWARE HE NEEDS TO BE PLACED ON BIPAP AT THIS TIME DUE TO LOW SPO2. PT REFUSING BIPAP AND REFUSING TO WEAR MASK AND REMAINS AGITATED. RN CALLED PT'S DAUGHTER, PT CALMED DOWN AND AGREED TO KEEP NRB MASK ON BUT WOULD NOT WEAR BIPAP. SPO2 IMPROVED TO 94%, WILL CONTINUE TO MONITOR.
[2020-09-08] MEDS: PIPERACILLIN-TAZOB 3.375GM 100 ML IV SCH ×3 (00:16→12:30)
--- NOTE | 2020-09-08 01:09 | NUR ---
PATIENT CONTINUES TO PULL OFF NON REBREATHER MASK, EXPLAINED TO PATIENT IMPORTANCE OF KEEPING MASK ON. PATIENT IS AGITATED AND CONFUSED. MASK READJUSTED. PATIENT IS ON CONTINUOUS EKG AND PULSE OX MONITOR.
--- NOTE | 2020-09-08 02:41 | NUR ---
PAGE[facility] HOSPITALIST PATIENT CONTINUES TO BE COMBATIVE, ATTEMPTING TO GET OUT OF BED AND PULLS OFF REBREATHER MASK,IV LINE AND ALATORRE. PATIENT IS CONFUSED A/O X1. LAST DOSE OF ATIVAN 0.5MG IV WAS ADMINISTERED AT 2340 09/07. AWAITING CALL BACK.
[2020-09-08] MEDS ORDERED: HALOPERIDOL LACTATE 5 MG/ML INJ VIAL IM ONE (03:00)
[2020-09-08 03:20] VITALS: BP 148/71
--- NOTE | 2020-09-08 03:45 | NUR ---
NURSE ARMATURE AND ROTOR WINDER JOSE AT BEDSIDE FOR SAFETY PRECAUTIONS.
[2020-09-08 05:00] VITALS: BP 149/67
[2020-09-08] MEDS: LEVOTHYROXINE SODIUM 50 MCG TAB PO SCH (06:20)
[2020-09-08] MEDS: FUROSEMIDE 40 MG/4 ML VIAL IV SCH (06:20)
[2020-09-08] MEDS: ENOXAPARIN SOD 60 MG/0.6 ML SYRINGE SC SCH ×2 (06:20→19:37)
[2020-09-08] MEDS: ALBUTEROL SULF HFA 90MCG INH 200DOSE IN SCH ×3 (06:55→21:21)
[2020-09-08] MEDS: BUDESONIDE (INHALATION) 180 MCG IH IN SCH ×2 (06:55→21:21)
--- NOTE | 2020-09-08 07:10 | NUR ---
CLOSING NOTE- NOC SHIFT ENDORSED PATIENT CARE TO DAY SHIFT NURSE ROMAN KEARNS. PATIENT IS SITTING UP IN BED. NO S/SX OF DISTRESS OR PAIN. NURSE ROBOTIC WELD TECHNICIAN AT BEDSIDE FOR SAFETY PRECAUTIONS. NON REBREATHER ON AT 15L
[2020-09-08 08:59] VITALS: BP 134/76
[2020-09-08] MEDS: CLOPIDOGREL BISULFATE 75 MG TAB PO SCH (10:00)
[2020-09-08] MEDS: ASPirin 81 mg TAB PO SCH (10:00)
[2020-09-08] MEDS: ASCORBIC ACID 1,000 MG TAB PO SCH (10:00)
[2020-09-08] MEDS: POTASSIUM EFFERVESENT TAB 25 MEQ PO SCH (10:00)
[2020-09-08] MEDS: dilTIAZem HCL 180MG ER CAP PO SCH (10:00)
[2020-09-08] MEDS: METOPROLOL TARTRATE 25 MG TAB PO SCH ×2 (10:00→22:15)
[2020-09-08] MEDS: CHOLECALCIFEROL (VITD3) 2,000 UNIT CAP PO SCH (10:00)
[2020-09-08] MEDS: ZINC SULFATE 220mg CAP or TAB PO SCH (10:00)
[2020-09-08] MEDS: DexAMETHasone SOD PHOS 10MG/1ML VIAL INJ IV SCH (11:25)
[2020-09-08 13:00] VITALS: BP 139/72
[2020-09-08 14:28] LABS: Calcium 8.2 mg/dL (8.5-10.1); Potassium 4.4 mmol/L (3.5-5.1)
[2020-09-08] MEDS ORDERED: REMDESIVIR 200 MG in NS 210ml LOADING DOSE ADULT IV ONE ×2 (16:00→17:30)
[2020-09-08 17:00] VITALS: BP 138/71
[2020-09-08] MEDS: TAMSULOSIN HYDROCHLORIDE 0.4 MG CAP PO SCH (17:54)
--- NOTE | 2020-09-08 17:54 | NUR ---
Remdesevir started at this time after consent obtained from patient and patient's daughter Venecia over the phone. Consents cosigned by this primary rn and Phyllis rn. Patient verbalized understandinG. VS BP 157/72 HR 63 Cont to monitor at bedside. Patient instructed to report any s/s of allergic reaction he verbalized understanding.
--- NOTE | 2020-09-08 18:09 | NUR ---
Patient tolerating Remdesevir infusion well with no signs of reaction noted. BP 152/73 HR 65. Cont to monitor closely. building attendant at bedside.
--- NOTE | 2020-09-08 19:05 | NUR ---
Patient care endorsed endorsed care to Noe braswell. Patient resting comfortably in bed no acute distress or sob noted. Pt on 15 oximizer sat 92%. Call light within reach. crew attendant at bedside.
--- NOTE | 2020-09-08 19:16 | NUR ---
Opening Shift Note Assumed care of patient, awake, alert and oriented x4, on 15L of oxygen via oxymizer with even and unlabored respirations, no S/S of distress/SOB or pain. Patient able to turn in bed independently, bed in lowest locked position, side rails up x2, call light within reach, and sitter at bedside. Instructed on POC and to call for assist PRN, will continue to monitor for changes Q1hr and PRN.
[2020-09-08 22:00] VITALS: BP 143/66
[2020-09-08] MEDS: ATORVASTATIN 20 MG TAB PO SCH (22:13)
[2020-09-08] MEDS: MONTELUKAST SODIUM 10 MG TAB PO SCH (22:13)
[2020-09-09 04:49] VITALS: BP 122/67
[2020-09-09] MEDS: ALBUTEROL SULF HFA 90MCG INH 200DOSE IN SCH ×3 (06:37→21:34)
[2020-09-09] MEDS: BUDESONIDE (INHALATION) 180 MCG IH IN SCH ×2 (06:37→21:34)
[2020-09-09] MEDS: ENOXAPARIN SOD 60 MG/0.6 ML SYRINGE SC SCH ×2 (07:00→18:34)
[2020-09-09] MEDS: LEVOTHYROXINE SODIUM 50 MCG TAB PO SCH (07:01)
[2020-09-09 07:50] LABS: Hematocrit 42.2 % (41.0-53.0); Hemoglobin 13.9 g/dL (13.5-17.5); Mean Corpuscular Hemoglobin 30.1 pg (28.0-32.0); Mean Corpuscular Volume 91.3 fL (80.0-100.0); Platelet Count (auto) 220 10^3/uL (140-450); Red Blood Cells 4.62 10^6/uL (4.5-5.90); White Blood Cell 13.5 10^3/uL (4.4-10.8)
[2020-09-09 07:52] LABS: Band Neutrophils % (manual) 0; Basophils % (manual) 0 (0.0-2.0); Blast Cells 0; Eosinophils % (manual) 0 (0-7); Metamyelocytes % 0; Myelocytes % 0; Promyelocytes % 0; Reactive Lymphocytes 0
[2020-09-09 08:01] LABS: Albumin 2.7 g/dL (3.4-5.0); Calcium 8.6 mg/dL (8.5-10.1); Potassium 3.7 mmol/L (3.5-5.1)
[2020-09-09 08:04] LABS: Bilirubin, Total 0.8 mg/dL (0.2-1.0); Total Protein 6.2 g/dL (6.4-8.2)
[2020-09-09 08:43] LABS: Lymphocytes % (manual) 9 (10.0-50.0); Monocytes % (manual) 9 (0-12)
[2020-09-09 09:00] VITALS: BP 136/69
[2020-09-09] MEDS: DexAMETHasone SOD PHOS 10MG/1ML VIAL INJ IV SCH (09:47)
[2020-09-09] MEDS: cefTRIAXone 1GM/50ML D5W 50 ML IV SCH (09:47)
[2020-09-09] MEDS: CHOLECALCIFEROL (VITD3) 2,000 UNIT CAP PO SCH (09:48)
[2020-09-09] MEDS: ASPirin 81 mg TAB PO SCH (09:48)
[2020-09-09] MEDS: POTASSIUM EFFERVESENT TAB 25 MEQ PO SCH (09:49)
[2020-09-09] MEDS: ASCORBIC ACID 1,000 MG TAB PO SCH (09:49)
[2020-09-09] MEDS: CLOPIDOGREL BISULFATE 75 MG TAB PO SCH (09:49)
[2020-09-09] MEDS: ZINC SULFATE 220mg CAP or TAB PO SCH (09:49)
[2020-09-09] MEDS: FUROSEMIDE 40 MG/4 ML VIAL IV SCH (09:52)
[2020-09-09] MEDS: dilTIAZem HCL 180MG ER CAP PO SCH (09:52)
[2020-09-09] MEDS: METOPROLOL TARTRATE 25 MG TAB PO SCH ×2 (09:52→21:41)
[2020-09-09 12:30] VITALS: BP 119/69
--- NOTE | 2020-09-09 14:19 | NUR ---
Nutrition Followup Note Wt 62.8kg Pt is covid positive in the covid isolation wing. Unable to reach pt over the phone. Pt with a pureed diet with a good appetite aeb pt with an avg po intake of 75% x 2 days per RN nutrition note. Est Energy needs: 4298-6886 kcals (20-23 kcal/kgBW) Est Protein needs: 68-75 gms/day (1.0-1.1 gm/kgBW) Will continue to monitor and reassess prn. Labs: Na 133L, BUN 34H, Alb 2.7L BM: PT with 1 BM 09/03 per Rn note Skin: BS 17 mod risk, full details in day care center director note PES: Resolved: 1) Inadequate oral intake r/t pt with a poor appetiteaeb pt with 0% PO intake 2) Altered nutrition related lab values r/t current medical condition aeb elev RFTs, hyperglycemia, hypoalbuminemia Comments: Will continue to monitor PO status, skin status, pertinent labs and weight trends. Will f/u in 3-5 days 1) Continue to closely monitor/assist pt PO intake to meet at least 75% of meals 2) If pt appetite becomes poor consider supplemental nutrition support Ensure Enlive 1 ctn TID 3) Continue current plan of care Expected Outcomes/Goals: Pt appetite to improve Pt labs to improve
[2020-09-09 16:18] VITALS: BP 137/70
--- NOTE | 2020-09-09 17:00 | NUR ---
Remdesevir started at this time after consent verified from patient and copy found in chart. VSS BP 137/70 HR 55 22RR 96%OXYGEN. Patient instructed to report any s/s of reaction he verbalized understanding. Cont to monitor at bedside
[2020-09-09] MEDS: REMDESIVIR 100mg in NS 230ml DAILYx4DAYS (NO VENT) IV SCH (17:02)
--- NOTE | 2020-09-09 17:15 | NUR ---
Patient tolerating Remdesevir infusion well with no signs of reaction noted. VSS BP 149/69 HR 63 O297% 16RR. Cont to monitor closely. building materials sales attendant at bedside at all times.
[2020-09-09] MEDS: TAMSULOSIN HYDROCHLORIDE 0.4 MG CAP PO SCH (18:34)
--- NOTE | 2020-09-09 19:00 | NUR ---
Patient care endorsed endorsed care to Manda rn. Patient currently on 8L oxymizer sat 993%. Fall precs in place.stadium attendant at bedside. No acute distress or sob noted. Call light within reach.
--- NOTE | 2020-09-09 19:45 | NUR ---
Opening Shift Note Assumed care of patient, awake and alert. No S/S of distress/SOB or pain. Instructed on POC and to call for assist PRN. Bed is in lowest locked position with bed rails up x2 and call light is within reach of the patient. Bed alarm is armed and sitter at the bedside for safety.
[2020-09-09] MEDS: DOXYCYCLINE 100 MG TAB/CAP PO SCH (21:39)
[2020-09-09] MEDS: MONTELUKAST SODIUM 10 MG TAB PO SCH (21:39)
[2020-09-09] MEDS: ATORVASTATIN 20 MG TAB PO SCH (21:41)
[2020-09-09 22:00] VITALS: BP 128/64
--- NOTE | 2020-09-09 23:50 | NUR ---
Patient agitated: Patient confused and agitated attempting to get out of bed stating " I have to go see Francis, I have to go." Reoriented the patient and increased oxygen to 12 liters Oxymizer at this time. Bed alarm is armed.
--- NOTE | 2020-09-10 00:05 | NUR ---
Hospitalist paged: Hospitalist paged at this time to notify about held scheduled medication due to decreased heart rate at 51. Waiting for call back.
--- NOTE | 2020-09-10 00:11 | NUR ---
Hospitalist called back: Hospitalist Lloyd called back, notified about held medication and low heart rate. Hospitalist aware. No new orders received.
[2020-09-10 05:00] VITALS: BP 154/76
[2020-09-10] MEDS: LEVOTHYROXINE SODIUM 50 MCG TAB PO SCH (06:32)
[2020-09-10] MEDS: ENOXAPARIN SOD 60 MG/0.6 ML SYRINGE SC SCH ×2 (06:33→18:10)
[2020-09-10] MEDS: ALBUTEROL SULF HFA 90MCG INH 200DOSE IN SCH ×3 (06:36→22:26)
[2020-09-10] MEDS: BUDESONIDE (INHALATION) 180 MCG IH IN SCH ×2 (06:37→22:26)
[2020-09-10 08:51] VITALS: BP 125/72
[2020-09-10] MEDS: POTASSIUM EFFERVESENT TAB 25 MEQ PO SCH (10:12)
[2020-09-10] MEDS: ASPirin 81 mg TAB PO SCH (10:12)
[2020-09-10] MEDS: cefTRIAXone 1GM/50ML D5W 50 ML IV SCH (10:12)
[2020-09-10] MEDS: DexAMETHasone SOD PHOS 10MG/1ML VIAL INJ IV SCH (10:12)
[2020-09-10] MEDS: ZINC SULFATE 220mg CAP or TAB PO SCH (10:12)
[2020-09-10] MEDS: CLOPIDOGREL BISULFATE 75 MG TAB PO SCH (10:13)
[2020-09-10] MEDS: ASCORBIC ACID 1,000 MG TAB PO SCH (10:13)
[2020-09-10] MEDS: DOXYCYCLINE 100 MG TAB/CAP PO SCH ×2 (10:13→23:03)
[2020-09-10] MEDS: CHOLECALCIFEROL (VITD3) 2,000 UNIT CAP PO SCH (10:14)
[2020-09-10] MEDS: FUROSEMIDE 40 MG/4 ML VIAL IV SCH (10:14)
[2020-09-10] MEDS: dilTIAZem HCL 180MG ER CAP PO SCH (10:15)
[2020-09-10] MEDS: METOPROLOL TARTRATE 25 MG TAB PO SCH ×2 (10:15→23:00)
[2020-09-10 11:28] LABS: Albumin 2.8 g/dL (3.4-5.0); Calcium 8.7 mg/dL (8.5-10.1); Potassium 4.2 mmol/L (3.5-5.1)
[2020-09-10 11:34] LABS: Bilirubin, Total 0.6 mg/dL (0.2-1.0); Total Protein 6.4 g/dL (6.4-8.2)
[2020-09-10 12:42] VITALS: BP 143/75
[2020-09-10 12:43] VITALS: BP 136/96
[2020-09-10] MEDS: REMDESIVIR 100mg in NS 230ml DAILYx4DAYS (NO VENT) IV SCH (16:31)
--- NOTE | 2020-09-10 16:32 | NUR ---
REMDESIVIR STARTED BP 129/72 NO SIGNS OF DISTRESS.
--- NOTE | 2020-09-10 16:47 | NUR ---
BP 143/68 NO SIGNS OF DISTRESS.
[2020-09-10] MEDS: TAMSULOSIN HYDROCHLORIDE 0.4 MG CAP PO SCH (18:10)
[2020-09-10 19:27] VITALS: BP 136/96
[2020-09-10 22:00] VITALS: BP 147/75
[2020-09-10] MEDS: ATORVASTATIN 20 MG TAB PO SCH (22:59)
[2020-09-10] MEDS: MONTELUKAST SODIUM 10 MG TAB PO SCH (23:03)
[2020-09-11 05:00] VITALS: BP 155/75
[2020-09-11] MEDS: ENOXAPARIN SOD 60 MG/0.6 ML SYRINGE SC SCH ×2 (06:06→18:27)
[2020-09-11] MEDS: LEVOTHYROXINE SODIUM 50 MCG TAB PO SCH (06:06)
[2020-09-11] MEDS: ALBUTEROL SULF HFA 90MCG INH 200DOSE IN SCH ×3 (07:11→21:49)
[2020-09-11] MEDS: BUDESONIDE (INHALATION) 180 MCG IH IN SCH ×2 (07:12→21:49)
--- NOTE | 2020-09-11 07:15 | NUR ---
Respiratory note: TOOK PT OFF NRB AND PLACED ON 10L OXYMIZER. SPO2 91%
--- NOTE | 2020-09-11 07:21 | NUR ---
closing note pt is resting in semi fowlers with HOB at 30 degrees. no c/o pain or discomfort. endorsed care to day shift RN Emily.
[2020-09-11 08:00] VITALS: BP 138/76
--- NOTE | 2020-09-11 08:00 | NUR ---
ASSESSMENT NOTE PT IS ALERT ORIENTED X4, GENERALIS WEAKNESS NOTED, OXYGEN OXYMIZER 11 SAT AT 92%, ALATORRE CATHETER TO GRAVITY, ASSISTED IN REPOSITIONING AT ALL TIMES, ABLE TO IDENTIFY HIS NEEDS, NO DISTRESS NOTED CALL LIGHT WITHIN REACH, SITTER AT BED SIDE AT ALL TIMES
[2020-09-11 08:49] VITALS: BP 111/76
--- NOTE | 2020-09-11 09:15 | NUR ---
IV insertion IV access obtained, via clean sterile technique by inserting 22 gauge catheter at after attempt(s). IV secured properly. No trauma to site. Patient tolerated procedure well.
[2020-09-11] MEDS: cefTRIAXone 1GM/50ML D5W 50 ML IV SCH (09:35)
[2020-09-11] MEDS: DexAMETHasone SOD PHOS 10MG/1ML VIAL INJ IV SCH (09:35)
[2020-09-11] MEDS: FUROSEMIDE 40 MG/4 ML VIAL IV SCH (09:38)
[2020-09-11] MEDS: ZINC SULFATE 220mg CAP or TAB PO SCH (09:39)
[2020-09-11] MEDS: ASPirin 81 mg TAB PO SCH (09:39)
[2020-09-11] MEDS: dilTIAZem HCL 180MG ER CAP PO SCH (09:39)
[2020-09-11] MEDS: CLOPIDOGREL BISULFATE 75 MG TAB PO SCH (09:40)
[2020-09-11] MEDS: DOXYCYCLINE 100 MG TAB/CAP PO SCH ×2 (09:40→23:00)
[2020-09-11] MEDS: ASCORBIC ACID 1,000 MG TAB PO SCH (09:40)
[2020-09-11] MEDS: CHOLECALCIFEROL (VITD3) 2,000 UNIT CAP PO SCH (09:40)
[2020-09-11] MEDS: POTASSIUM EFFERVESENT TAB 25 MEQ PO SCH (09:40)
--- NOTE | 2020-09-11 09:40 | NUR ---
ALL MORNING MEDS GIVEN TO PT, A THICKENER ADDED TO HIS WATER TO PREVENT ASPIRATION
[2020-09-11] MEDS: METOPROLOL TARTRATE 25 MG TAB PO SCH ×2 (10:00→22:59)
--- NOTE | 2020-09-11 13:02 | NUR ---
Nutrition Followup Notes Wt 64.7 kg Pt is covid positive in the covid isolation wing. Pt with a pureed diet with an improved good appetite aeb pt with an avg po intake of 82% x 5 days per RN doc. Est Energy needs: 7630-5606 kcals (20-23 kcal/kgBW) Est Protein needs: 68-75 gms/day (1.0-1.1 gm/kgBW) Will continue to monitor and reassess prn. Labs: Gluc 126 H, BUN 35 H, Alb 2.8 L BM: PT with 1 BM 09/10 per Rn note Skin: BS 14 mod risk, full details in child care sitter note PES: Resolved: 1) Inadequate oral intake r/t pt with a poor appetiteaeb pt with 0% PO intake 2) Altered nutrition related lab values r/t current medical condition aeb elev RFTs, hyperglycemia, hypoalbuminemia Comments: Will continue to monitor PO status, skin status, pertinent labs and weight trends. Will f/u in 3-5 days 1) Continue to closely monitor/assist pt PO intake to meet at least 75% of meals 2) If pt appetite becomes poor consider supplemental nutrition support Ensure Enlive 1 ctn TID 3) Continue current plan of care Expected Outcomes/Goals: Pt appetite to improve Pt labs to improve
[2020-09-11 13:10] VITALS: BP 111/62
--- NOTE | 2020-09-11 13:30 | NUR ---
ALATORRE CATHETER IS LEAKING, PT REQUESTED TO GET REMOVED, TOLERATED WELL
--- NOTE | 2020-09-11 14:00 | NUR ---
ASSISTED PT TO GET OUT OF BED, AND SIT ON CHAIR AT BED SIDE
--- NOTE | 2020-09-11 14:20 | NUR ---
PHYSICAL THERAPY AT BED SIDE ASSISTING PT TO GET OUT OF BED WITH FRONT WHEEL WALKER TO AMBULATE IN THE HALLWAYS, OXYGEN OXYMIZER 11 L , NO DISTRESS NOTED
--- NOTE | 2020-09-11 15:00 | NUR ---
URINAL PT WAS ABLE TO USE THE URINAL WITH 50 ML OUTPUT, NO URINE RETENTION NOTED, CONTINUE MONITORING
[2020-09-11 16:36] VITALS: BP 133/94
[2020-09-11] MEDS: REMDESIVIR 100mg in NS 230ml DAILYx4DAYS (NO VENT) IV SCH (16:55)
--- NOTE | 2020-09-11 16:55 | NUR ---
REMEDISIVIR INTRAVENOUS INITIATED PRE SET OF VS TAKEN CONTINUE MONITORING
--- NOTE | 2020-09-11 18:00 | NUR ---
PT TOLERATED REMEDISIVIR WELL, NO DISTRESS NOTED, VS ARE STABLE
--- NOTE | 2020-09-11 18:26 | NUR ---
PT CONTINUE STABLE, CONTINUE MONITORING
[2020-09-11] MEDS: TAMSULOSIN HYDROCHLORIDE 0.4 MG CAP PO SCH (18:27)
[2020-09-11 21:31] VITALS: BP 140/69
[2020-09-11] MEDS: ATORVASTATIN 20 MG TAB PO SCH (22:58)
[2020-09-11] MEDS: MONTELUKAST SODIUM 10 MG TAB PO SCH (22:59)
[2020-09-12 05:08] VITALS: BP 131/67
[2020-09-12] MEDS: LEVOTHYROXINE SODIUM 50 MCG TAB PO SCH (06:43)
[2020-09-12] MEDS: ENOXAPARIN SOD 60 MG/0.6 ML SYRINGE SC SCH ×2 (06:43→17:36)
--- NOTE | 2020-09-12 07:16 | NUR ---
closing note pt resting in semi fowlers with HOB at 30 degrees. no s/s of respiratory distress. pt is on 11 liters oxymizer. o2 saturation is 93%. no c/o pain. pt has sitter at the bedside. endorsed care to day shift RN Emily.
[2020-09-12 07:31] LABS: Basophils # (auto) 0.1 10 ^3/uL (0-0.2); Basophils % (auto) 0.6 % (0.0-2.0); Eosinophils # (auto) 0 10 ^3/uL (0-0.8); Eosinophils % (auto) 0.1 % (0.0-7.0); Hematocrit 41.1 % (41.0-53.0); Hemoglobin 13.9 g/dL (13.5-17.5); Lymphocytes # (auto) 1.2 10 ^3/uL (0.4-5.4); Lymphocytes % (auto) 7.7 % (10.0-50.0); Mean Corpuscular Hemoglobin 30.5 pg (28.0-32.0); Mean Corpuscular Hgb Conc. 33.7 g/dL (32.0-36.0); Mean Corpuscular Volume 90.6 fL (80.0-100.0); Monocytes # (auto) 0.6 10 ^3/uL (0-1.3); Monocytes % (auto) 3.8 % (0.0-12.0); Neutrophils # (auto) 14.2 10 ^3/uL (1.6-8.6); Neutrophils % (auto) 87.8 % (37.0-80.0); Nucleated Red Blood Cells % 0.1 %; Platelet Count (auto) 268 10^3/uL (140-450); Red Blood Cells 4.54 10^6/uL (4.5-5.90); Red Cell Distribution Width 13.2 % (11.8-14.3); White Blood Cell 16.2 10^3/uL (4.4-10.8)
[2020-09-12 07:43] LABS: Albumin 2.8 g/dL (3.4-5.0); Calcium 8.3 mg/dL (8.5-10.1); Potassium 3.8 mmol/L (3.5-5.1)
[2020-09-12 07:51] LABS: BUN/Creatinine Ratio 35.2; Bilirubin, Total 0.7 mg/dL (0.2-1.0); CRP High Sensitivity 4.3 mg/dL (< 0.3); Total Protein 6.1 g/dL (6.4-8.2)
[2020-09-12] MEDS: BUDESONIDE (INHALATION) 180 MCG IH IN SCH ×2 (07:52→22:08)
[2020-09-12] MEDS: ALBUTEROL SULF HFA 90MCG INH 200DOSE IN SCH ×3 (07:52→22:08)
[2020-09-12 08:00] VITALS: BP 137/71
--- NOTE | 2020-09-12 08:00 | NUR ---
ASSESSMENT NOTE PT IS ALERT ORIENTED X4, GENERALIS WEAKNESS NOTED, OXYGEN OXYMIZER 8 SAT AT 97%, ASSISTED IN REPOSITIONING AT ALL TIMES, ABLE TO IDENTIFY HIS NEEDS, USE URINAL NEEDED, NO DISTRESS NOTED CALL LIGHT WITHIN REACH, SITTER AT BED SIDE AT ALL TIMES
--- NOTE | 2020-09-12 08:30 | NUR ---
DR BYERS CALLED OVER THE PHONE, FOLLOWING UP ON PT, MADE AWARE THAT PT ON 86 OXYMIZER, AND CONTINUE MONITORING PT
[2020-09-12 09:00] VITALS: BP 107/55
[2020-09-12] MEDS: cefTRIAXone 1GM/50ML D5W 50 ML IV SCH (09:09)
[2020-09-12] MEDS: DexAMETHasone SOD PHOS 10MG/1ML VIAL INJ IV SCH (09:09)
[2020-09-12] MEDS: CLOPIDOGREL BISULFATE 75 MG TAB PO SCH (09:10)
[2020-09-12] MEDS: POTASSIUM EFFERVESENT TAB 25 MEQ PO SCH (09:10)
[2020-09-12] MEDS: DOXYCYCLINE 100 MG TAB/CAP PO SCH ×2 (09:10→22:10)
[2020-09-12] MEDS: ZINC SULFATE 220mg CAP or TAB PO SCH (09:10)
[2020-09-12] MEDS: CHOLECALCIFEROL (VITD3) 2,000 UNIT CAP PO SCH (09:11)
[2020-09-12] MEDS: dilTIAZem HCL 180MG ER CAP PO SCH (09:11)
[2020-09-12] MEDS: ASCORBIC ACID 1,000 MG TAB PO SCH (09:11)
[2020-09-12] MEDS: FUROSEMIDE 40 MG/4 ML VIAL IV SCH (09:12)
[2020-09-12] MEDS: ASPirin 81 mg TAB PO SCH (09:12)
--- NOTE | 2020-09-12 09:38 | NUR ---
DR BYERS AT BED SIDE FOLLOWING UP ON PT, ENCOURAGE PT TO USE THE INCENTIVE SPIROMETER
--- NOTE | 2020-09-12 09:40 | NUR ---
BM PT HAS BM, KEPT CLEAN AND DRY
[2020-09-12] MEDS: METOPROLOL TARTRATE 25 MG TAB PO SCH ×2 (10:00→22:10)
--- NOTE | 2020-09-12 12:54 | NUR ---
LUNCH TIME ENCOURAGE PT TO WAKE UP AND EAT LUNCH, PT APPEAR TIRED AND LETHARGIC, 8 L OXYMIZER SAT AT 97%, BS 147, BP 117/57 HR 64, PT WENT BACK TO SLEEP, CONTINUE MONITORING, SITTER AT BED SIDE
[2020-09-12 13:00] VITALS: BP 117/57
--- NOTE | 2020-09-12 14:00 | NUR ---
PHYSICAL THERAPY AT BED SIDE, ASSISTING PT TO AMBULATE IN THE HALLWAYS, THEN BACK TO SIT ON CHAIR AT BED SIDE, TOLERATED WELL, NO DISTRESS NOTED
--- NOTE | 2020-09-12 14:40 | NUR ---
INCENTIVE SPIROMETR EDUCATED PT HOW TO USE THE INCENTIVE SPIROMETER, WAS ABLE TO DEMONSTRATED BACK, RAISE DRILL OPERATOR AT BED SIDE AWARE
[2020-09-12] MEDS: REMDESIVIR 100mg in NS 230ml DAILYx4DAYS (NO VENT) IV SCH (16:06)
--- NOTE | 2020-09-12 16:06 | NUR ---
REMEDISIVIR INTRAVENOUS INITIATED PRE SET OF VS TAKEN CONTINUE MONITORING
--- NOTE | 2020-09-12 16:20 | NUR ---
PT TOLERATED REMEDISIVIR WELL, CONTINUE MONITORING
[2020-09-12 17:00] VITALS: BP 143/65
--- NOTE | 2020-09-12 17:00 | NUR ---
PT TOLERATED REMEDISIVIR WELL, VS STABLE
[2020-09-12] MEDS: TAMSULOSIN HYDROCHLORIDE 0.4 MG CAP PO SCH (17:36)
--- NOTE | 2020-09-12 18:18 | NUR ---
PT CONTINUE STABLE, CONTINUE MONITORING
[2020-09-12] MEDS: ATORVASTATIN 20 MG TAB PO SCH (22:09)
[2020-09-12] MEDS: MONTELUKAST SODIUM 10 MG TAB PO SCH (22:10)
[2020-09-12 22:15] VITALS: BP 150/67
[2020-09-13 05:04] VITALS: BP 123/66
[2020-09-13] MEDS: BUDESONIDE (INHALATION) 180 MCG IH IN SCH ×2 (05:54→21:42)
[2020-09-13] MEDS: ALBUTEROL SULF HFA 90MCG INH 200DOSE IN SCH ×3 (05:54→21:42)
[2020-09-13] MEDS: ENOXAPARIN SOD 60 MG/0.6 ML SYRINGE SC SCH ×2 (06:37→18:10)
[2020-09-13] MEDS: LEVOTHYROXINE SODIUM 50 MCG TAB PO SCH (06:37)
--- NOTE | 2020-09-13 07:21 | NUR ---
closing note pt resting in semi fowlers with HOB at 30 degrees. no c/o of pain or discomfort. pt is on 8L oxymizer. endorsed care to day shift RN Phyllis.
--- NOTE | 2020-09-13 07:30 | NUR ---
OPENING NOTES ASSUMED CARE OF PT. ALERT AND ORIENTED. NO S/S OF SOB/DISTRESS NOTED. BED SET TO LOWEST POSITION/LOCKED. BEDSIDE RAILS UP X2. SITTER AT BEDSIDE FOR SAFETY. CALL LIGHT WITHIN REACH. INSTRUCTED PT TO CALL FOR ASSISTANCE. UPDATED ON POC. PT VERBALIZED UNDERSTANDING. WILL CONTINUE TO MONITOR Q1HR AND PRN FOR CHANGES.
[2020-09-13 08:50] VITALS: BP 123/64
[2020-09-13] MEDS: cefTRIAXone 1GM/50ML D5W 50 ML IV SCH (10:24)
[2020-09-13] MEDS: FUROSEMIDE 40 MG/4 ML VIAL IV SCH (10:25)
[2020-09-13] MEDS: ASPirin 81 mg TAB PO SCH (10:25)
[2020-09-13] MEDS: ZINC SULFATE 220mg CAP or TAB PO SCH (10:25)
[2020-09-13] MEDS: DOXYCYCLINE 100 MG TAB/CAP PO SCH ×2 (10:26→23:03)
[2020-09-13] MEDS: CLOPIDOGREL BISULFATE 75 MG TAB PO SCH (10:26)
[2020-09-13] MEDS: ASCORBIC ACID 1,000 MG TAB PO SCH (10:26)
[2020-09-13] MEDS: POTASSIUM EFFERVESENT TAB 25 MEQ PO SCH (10:26)
[2020-09-13] MEDS: METOPROLOL TARTRATE 25 MG TAB PO SCH ×2 (10:26→22:00)
[2020-09-13] MEDS: CHOLECALCIFEROL (VITD3) 2,000 UNIT CAP PO SCH (10:27)
[2020-09-13] MEDS: dilTIAZem HCL 180MG ER CAP PO SCH (10:28)
[2020-09-13] MEDS: DexAMETHasone SOD PHOS 10MG/1ML VIAL INJ IV SCH (10:52)
[2020-09-13 12:44] VITALS: BP 100/58
--- NOTE | 2020-09-13 14:56 | NUR ---
PAGED DR. BYERS RE: DOWN GRADING PATIENT FROM KRUNAL STATUS. AWAITING CALL BACK. [id number] BYERS RE: DOWN GRADE. PER MD DOWN GRADE PATIENT TO TELE.
[2020-09-13 16:33] VITALS: BP 108/64
[2020-09-13 18:07] VITALS: BP 108/64
[2020-09-13] MEDS: TAMSULOSIN HYDROCHLORIDE 0.4 MG CAP PO SCH (18:10)
--- NOTE | 2020-09-13 19:30 | NUR ---
Opening Shift Note Assumed care of patient, awake and alert x3, patient easily reoriented to situation, will continue to reorient patient as needed and throughout shift. Patient denies pain or shortness of breath at this time. Patient is on 6L/min Oxymizer, SPO2: 95% at this time. No sign/symptoms of distress noted or verbalized at this time. Instructed on plan of care and encouraged patient to call for assistance as needed, patient verbalized understanding. Bed is locked in lowest position, side rails x 2 are up, call light is within reach, bed alarm is on, and sitter noted at the bedside for safety precautions.
[2020-09-13 22:34] VITALS: BP 143/67
[2020-09-13] MEDS: ATORVASTATIN 20 MG TAB PO SCH (23:03)
[2020-09-13] MEDS: MONTELUKAST SODIUM 10 MG TAB PO SCH (23:03)
[2020-09-14 05:30] VITALS: BP 133/71
[2020-09-14] MEDS: ENOXAPARIN SOD 60 MG/0.6 ML SYRINGE SC SCH ×2 (06:27→18:02)
[2020-09-14] MEDS: LEVOTHYROXINE SODIUM 50 MCG TAB PO SCH (06:27)
[2020-09-14] MEDS: BUDESONIDE (INHALATION) 180 MCG IH IN SCH ×2 (06:37→20:42)
[2020-09-14] MEDS: ALBUTEROL SULF HFA 90MCG INH 200DOSE IN SCH ×3 (06:37→20:43)
[2020-09-14 09:00] VITALS: BP 128/62
[2020-09-14] MEDS: cefTRIAXone 1GM/50ML D5W 50 ML IV SCH (11:11)
[2020-09-14] MEDS: DexAMETHasone SOD PHOS 10MG/1ML VIAL INJ IV SCH (11:11)
[2020-09-14] MEDS: FUROSEMIDE 40 MG/4 ML VIAL IV SCH (11:12)
[2020-09-14] MEDS: ASPirin 81 mg TAB PO SCH (11:13)
[2020-09-14] MEDS: ZINC SULFATE 220mg CAP or TAB PO SCH (11:13)
[2020-09-14] MEDS: POTASSIUM EFFERVESENT TAB 25 MEQ PO SCH (11:14)
[2020-09-14] MEDS: dilTIAZem HCL 180MG ER CAP PO SCH (11:14)
[2020-09-14] MEDS: DOXYCYCLINE 100 MG TAB/CAP PO SCH ×2 (11:15→21:18)
[2020-09-14] MEDS: CLOPIDOGREL BISULFATE 75 MG TAB PO SCH (11:15)
[2020-09-14] MEDS: METOPROLOL TARTRATE 25 MG TAB PO SCH ×2 (11:15→21:26)
[2020-09-14] MEDS: ASCORBIC ACID 1,000 MG TAB PO SCH (11:15)
[2020-09-14] MEDS: CHOLECALCIFEROL (VITD3) 2,000 UNIT CAP PO SCH (11:16)
--- NOTE | 2020-09-14 14:07 | NUR ---
Nutrition Followup Notes Wt 61.0 kg Pt is covid positive in the covid isolation wing. Attempted to speak to pt through pt's room phone, pt did not answer. Pt is with a pureed diet with a fair appetite aeb pt with 61% po intake x 2 days per Rn note. Est Energy needs: 6855-1520 kcals (20-23 kcal/kgBW) Est Protein needs: 68-75 gms/day (1.0-1.1 gm/kgBW) Will continue to monitor and reassess prn. Labs: Gluc 142H, Alb 2.8L, BUN 37H, Na 132L BM: PT with 2 BMs / per Rn note Skin: BS 19 low risk, full details in manager medicare marketing note PES: Resolved: 1) Inadequate oral intake r/t pt with a poor appetiteaeb pt with 0% PO intake 2) Altered nutrition related lab values r/t current medical condition aeb elev RFTs, hyperglycemia, hypoalbuminemia Comments: Will continue to monitor intake, skin status, pertinent labs and weight trends. Will f/u in 3-5 days 1) Continue to closely monitor/assist pt PO intake to meet at least 75% of meals 2) If pt appetite becomes poor consider supplemental nutrition support Ensure Enlive 1 ctn TID 3) Continue current plan of care Expected Outcomes/Goals: Pt appetite to improve Pt labs to improve
[2020-09-14 14:15] VITALS: BP 114/73
[2020-09-14] MEDS: TAMSULOSIN HYDROCHLORIDE 0.4 MG CAP PO SCH (18:02)
--- NOTE | 2020-09-14 19:40 | NUR ---
Opening Shift Note Assumed care of patient, awake and alert x4. Patient denies pain or shortness of breath at this time. Patient is on 4.5L/min Oxymizer, SPO2: 95% at this time. No sign/symptoms of distress noted or verbalized at this time. Instructed on plan of care and encouraged patient to call for assistance as needed, patient verbalized understanding. Bed is locked in lowest position, side rails x 2 are up, call light is within reach, bed alarm is on, and sitter noted at the bedside for safety precautions.
[2020-09-14 20:55] VITALS: BP 117/62
[2020-09-14] MEDS: MONTELUKAST SODIUM 10 MG TAB PO SCH (21:18)
[2020-09-14] MEDS: ATORVASTATIN 20 MG TAB PO SCH (21:18)
--- NOTE | 2020-09-15 02:59 | NUR ---
IV Insertion IV access obtained, via clean sterile technique by inserting 22 gauge catheter at left hand after 1 attempt. IV secured properly. No trauma to site. Patient tolerated well. IV Removal IV to right AC DC'd per infectious control policy. IV DC'd with clean sterile technique, catheter fully intact. Pressure dressing applied to site. Patient tolerated well.
[2020-09-15 05:17] VITALS: BP 130/71
[2020-09-15] MEDS: LEVOTHYROXINE SODIUM 50 MCG TAB PO SCH (06:12)
[2020-09-15] MEDS: ENOXAPARIN SOD 60 MG/0.6 ML SYRINGE SC SCH ×2 (06:12→18:24)
[2020-09-15] MEDS: BUDESONIDE (INHALATION) 180 MCG IH IN SCH ×2 (06:49→21:39)
[2020-09-15] MEDS: ALBUTEROL SULF HFA 90MCG INH 200DOSE IN SCH ×3 (06:49→21:39)
[2020-09-15 09:00] VITALS: BP 107/50
[2020-09-15] MEDS: cefTRIAXone 1GM/50ML D5W 50 ML IV SCH (09:28)
[2020-09-15] MEDS: DexAMETHasone SOD PHOS 10MG/1ML VIAL INJ IV SCH (09:28)
[2020-09-15] MEDS: CLOPIDOGREL BISULFATE 75 MG TAB PO SCH (09:29)
[2020-09-15] MEDS: ASPirin 81 mg TAB PO SCH (09:29)
[2020-09-15] MEDS: POTASSIUM EFFERVESENT TAB 25 MEQ PO SCH (09:29)
[2020-09-15] MEDS: DOXYCYCLINE 100 MG TAB/CAP PO SCH ×2 (09:29→22:41)
[2020-09-15] MEDS: ZINC SULFATE 220mg CAP or TAB PO SCH (09:29)
[2020-09-15] MEDS: ASCORBIC ACID 1,000 MG TAB PO SCH (09:30)
[2020-09-15] MEDS: CHOLECALCIFEROL (VITD3) 2,000 UNIT CAP PO SCH (09:30)
[2020-09-15] MEDS: METOPROLOL TARTRATE 25 MG TAB PO SCH ×2 (09:31→22:41)
[2020-09-15] MEDS: dilTIAZem HCL 180MG ER CAP PO SCH (09:32)
[2020-09-15] MEDS: FUROSEMIDE 40 MG/4 ML VIAL IV SCH (09:32)
[2020-09-15 13:00] VITALS: BP 122/73
[2020-09-15 17:00] VITALS: BP 124/66
[2020-09-15] MEDS: TAMSULOSIN HYDROCHLORIDE 0.4 MG CAP PO SCH (17:33)
[2020-09-15 21:31] VITALS: BP 132/71
--- NOTE | 2020-09-15 21:39 | NUR ---
PT RINSED OUT HIS MOUTH POST PULMICORT TX Addendum: 09/15/20 at 2313 by ZAMZAM HERNANDEZ RT Amended: Links added.
[2020-09-15] MEDS: ATORVASTATIN 20 MG TAB PO SCH (22:40)
[2020-09-15] MEDS: MONTELUKAST SODIUM 10 MG TAB PO SCH (22:41)
[2020-09-16 04:39] VITALS: BP 129/68
[2020-09-16] MEDS: ENOXAPARIN SOD 60 MG/0.6 ML SYRINGE SC SCH ×2 (06:59→17:42)
[2020-09-16] MEDS: LEVOTHYROXINE SODIUM 50 MCG TAB PO SCH (06:59)
[2020-09-16 09:00] VITALS: BP 137/80
[2020-09-16] MEDS: ALBUTEROL SULF HFA 90MCG INH 200DOSE IN SCH ×3 (09:32→21:01)
[2020-09-16] MEDS: BUDESONIDE (INHALATION) 180 MCG IH IN SCH ×2 (09:32→21:01)
[2020-09-16] MEDS: cefTRIAXone 1GM/50ML D5W 50 ML IV SCH (10:13)
[2020-09-16] MEDS: DexAMETHasone SOD PHOS 10MG/1ML VIAL INJ IV SCH (10:13)
[2020-09-16] MEDS: ZINC SULFATE 220mg CAP or TAB PO SCH (10:14)
[2020-09-16] MEDS: ASPirin 81 mg TAB PO SCH (10:14)
[2020-09-16] MEDS: FUROSEMIDE 40 MG/4 ML VIAL IV SCH (10:14)
[2020-09-16] MEDS: CHOLECALCIFEROL (VITD3) 2,000 UNIT CAP PO SCH (10:15)
[2020-09-16] MEDS: dilTIAZem HCL 180MG ER CAP PO SCH (10:15)
[2020-09-16] MEDS: POTASSIUM EFFERVESENT TAB 25 MEQ PO SCH (10:15)
[2020-09-16] MEDS: DOXYCYCLINE 100 MG TAB/CAP PO SCH ×2 (10:15→22:00)
[2020-09-16] MEDS: ASCORBIC ACID 1,000 MG TAB PO SCH (10:15)
[2020-09-16] MEDS: CLOPIDOGREL BISULFATE 75 MG TAB PO SCH (10:15)
[2020-09-16] MEDS: METOPROLOL TARTRATE 25 MG TAB PO SCH ×2 (10:16→21:57)
--- NOTE | 2020-09-16 10:20 | NUR ---
DR BYERS IN TO SEE PATIENT. PATIENT WILL CONTINUE TO WORK WITH PT.
[2020-09-16] MEDS: LORazepam 0.5 MG TAB PO PRN (12:57)
[2020-09-16 17:00] VITALS: BP 141/71
[2020-09-16] MEDS: TAMSULOSIN HYDROCHLORIDE 0.4 MG CAP PO SCH (17:09)
[2020-09-16] MEDS: ATORVASTATIN 20 MG TAB PO SCH (21:55)
[2020-09-16 22:00] VITALS: BP 128/71
[2020-09-16] MEDS: MONTELUKAST SODIUM 10 MG TAB PO SCH (22:00)
[2020-09-17] VITALS (7 sets, daily range): BP systolic 117–141; BP diastolic 59–69
[2020-09-17] MEDS: ALBUTEROL SULF HFA 90MCG INH 200DOSE IN SCH ×3 (06:13→22:38)
[2020-09-17] MEDS: BUDESONIDE (INHALATION) 180 MCG IH IN SCH ×2 (06:13→22:38)
[2020-09-17] MEDS: LEVOTHYROXINE SODIUM 50 MCG TAB PO SCH (06:58)
[2020-09-17] MEDS: ENOXAPARIN SOD 60 MG/0.6 ML SYRINGE SC SCH ×2 (06:58→18:54)
--- NOTE | 2020-09-17 09:08 | NUR ---
DR BYERS AT BEDSIDE. WILL DISCHARGE PATIENT HOME TODAY.
[2020-09-17] MEDS: cefTRIAXone 1GM/50ML D5W 50 ML IV SCH (10:41)
[2020-09-17] MEDS: ZINC SULFATE 220mg CAP or TAB PO SCH (10:42)
[2020-09-17] MEDS: POTASSIUM EFFERVESENT TAB 25 MEQ PO SCH (10:42)
[2020-09-17] MEDS: CHOLECALCIFEROL (VITD3) 2,000 UNIT CAP PO SCH (10:42)
[2020-09-17] MEDS: DexAMETHasone SOD PHOS 10MG/1ML VIAL INJ IV SCH (10:42)
[2020-09-17] MEDS: ASCORBIC ACID 1,000 MG TAB PO SCH (10:42)
[2020-09-17] MEDS: ASPirin 81 mg TAB PO SCH (10:42)
[2020-09-17] MEDS: CLOPIDOGREL BISULFATE 75 MG TAB PO SCH (10:42)
[2020-09-17] MEDS: DOXYCYCLINE 100 MG TAB/CAP PO SCH ×2 (10:43→22:31)
[2020-09-17] MEDS: FUROSEMIDE 40 MG/4 ML VIAL IV SCH (10:44)
[2020-09-17] MEDS: dilTIAZem HCL 180MG ER CAP PO SCH (10:44)
[2020-09-17] MEDS: METOPROLOL TARTRATE 25 MG TAB PO SCH ×2 (10:45→22:30)
--- NOTE | 2020-09-17 14:17 | NUR ---
PLACED ON ROOM AIR OXYGEN SATURATION 90% NO SIGNS OF DISTRESS.
--- NOTE | 2020-09-17 15:42 | NUR ---
NOTIFIED DR BYERS THAT PATIENT AMBULATED WITHOUT OXYGEN AND STILL DOES NOT QUALIFY FOR HOME OXYGEN. ALSO WAITING FOR HOME HEALTH TO BE ARRANGED PRIOR TO DISCHARGE.
--- NOTE | 2020-09-17 16:13 | NUR ---
D/C planning Per social service consult for home oxygen at 3l/min and home physical therapy. Clinical information was reviewed and approved by [facility]. Faxed clinical information to [facility] and [facility]. Per Shelbi Todd home health patient has been accepted and service to start within 24-48hrs upon d/c day. Requested for oxygen portable to be deliver to the front lobby. [facility] .
--- NOTE | 2020-09-17 16:53 | NUR ---
CALLED [facility] TO SEE WHAT TIME ETA FOR OXYGEN AND SPOKE TO CYRIL WHO SAID THEY DO NOT HAVE AN ORDER FOR THE PATIENT. PAGED TERE TO SEE IF SHE KNOWS WHY THEY SAID THEY DO NOT HAVE AN ORDER.
--- NOTE | 2020-09-17 17:11 | NUR ---
NO CALL BACK FROM [facility] SO I PAGED [facility] [employer] DRYER FEEDER HAILEE
[2020-09-17] MEDS: TAMSULOSIN HYDROCHLORIDE 0.4 MG CAP PO SCH (17:41)
--- NOTE | 2020-09-17 17:49 | NUR ---
[id number] - Contacted [employer] vendor at [phone] regarding delivery of home oxygen to lobby of [facility]. Spoke with Abby who stated order was just being processed, she also stated she was unable to provided a time of delivery but stated it would be later this evening. I provided Abby with the contact number for the nurse's station. Also provided all info stated above to nurse Soler.
--- NOTE | 2020-09-17 18:55 | NUR ---
DAUGHTER WILL UP PATIENT IN A.M ONCE SHE CAN GET HIS MEDICATIONS AND OXYGEN. Addendum: 09/17/20 at 1856 by aKrlene Antunez RN DAUGHTER WILL ANIMAL CYTOLOGIST PATIENT IN A.M. ONCE SHE GET HIS MEDICATIONS FROM PHARMACY AND OXYGEN.
[2020-09-17] MEDS: ATORVASTATIN 20 MG TAB PO SCH (22:29)
[2020-09-17] MEDS: MONTELUKAST SODIUM 10 MG TAB PO SCH (22:30)
[2020-09-18] MEDS: LEVOTHYROXINE SODIUM 50 MCG TAB PO SCH (07:03)
[2020-09-18] MEDS: ENOXAPARIN SOD 60 MG/0.6 ML SYRINGE SC SCH (07:03)
[2020-09-18] MEDS: ALBUTEROL SULF HFA 90MCG INH 200DOSE IN SCH (07:33)
[2020-09-18] MEDS: BUDESONIDE (INHALATION) 180 MCG IH IN SCH (07:33)
--- NOTE | 2020-09-18 09:46 | NUR ---
Discharge instructions given as ordered. Encourage to follow up with PMD as instructed. All questions and concerns addressed. Patient verbalized understanding. Medication reconciliation form completed and copy given to patient. Patient taken to vehicle via wheelchair with all personal belongings, accompanied by staff and family member. No distress noted at time of departure.
== END 2020-09-18 09:55 | disposition home health service (06) | DRG 871 ==
LOC: ER 15:28 → TELE-EAST 15:29 → UNDOADMIN 15:29 → TELE 15:29 → TELE-EAST 09-09 02:33
PROVIDERS: ADMIT Hospitalist; ATTEND Internal Medicine
PROC: XW13325 Transfusion of Convalescent Plasma (Nonautologous) into Peripheral Vein, Percutaneous Approach, New Technology Group 5 (ICD-10-PCS; principal; 2020-09-04)
PROC: 5A09357 Assistance with Respiratory Ventilation, Less than 24 Consecutive Hours, Continuous Positive Airway Pressure (ICD-10-PCS; 2020-09-05)
PROC: XW033E5 Introduction of Remdesivir Anti-infective into Peripheral Vein, Percutaneous Approach, New Technology Group 5 (ICD-10-PCS; 2020-09-08)
PROC: XW033E5 Introduction of Remdesivir Anti-infective into Peripheral Vein, Percutaneous Approach, New Technology Group 5 (ICD-10-PCS; 2020-09-12)
DX: A41.89 Other specified sepsis (principal); U07.1 COVID-19; J12.89 Other viral pneumonia; J96.00 Acute respiratory failure, unspecified whether with hypoxia or hypercapnia; N17.0 Acute kidney failure with tubular necrosis; E87.1 Hypo-osmolality and hyponatremia; J44.9 Chronic obstructive pulmonary disease, unspecified; N40.1 Benign prostatic hyperplasia with lower urinary tract symptoms; J45.909 Unspecified asthma, uncomplicated; I10 Essential (primary) hypertension; E07.9 Disorder of thyroid, unspecified; E78.5 Hyperlipidemia, unspecified; I25.10 Atherosclerotic heart disease of native coronary artery without angina pectoris; K40.90 Unilateral inguinal hernia, without obstruction or gangrene, not specified as recurrent; N18.30 Chronic kidney disease, stage 3 unspecified; R33.8 Other retention of urine; Z79.899 Other long term (current) drug therapy; Z88.8 Allergy status to other drugs, medicaments and biological substances
CPT/HCPCS: 36415; 36600; 71045; 71275; 80048; 80053; 80061; 80202; 80307; 81001; 82565; 82728; 82805; 82962; 83036; 83605; 83615; 83735; 83880; 84443; 84484; 85007; 85025; 85027; 85379; 86141; 86850; 86900; 86901; 87040; 87086; 87426; 92610; 93005; 94640; 94660; 97110; 97116; 97163; 97530; 99291; G0378; J0696; J1100; J2405; J2543; J3490

== ENCOUNTER 2020-10-10 11:06 | Emergency (ER) | payer OTHER ==
[~2020-10-10] VITALS: Ht 165.1 cm; Wt 63.5 kg
[2020-10-10 12:17] VITALS: BP 122/57
[2020-10-10 12:45] LABS: Basophils # (auto) 0.1 10 ^3/uL (0-0.2); Basophils % (auto) 0.8 % (0.0-2.0); Eosinophils # (auto) 0.1 10 ^3/uL (0-0.8); Eosinophils % (auto) 1.3 % (0.0-7.0); Hematocrit 38.6 % (41.0-53.0); Hemoglobin 12.8 g/dL (13.5-17.5); Lymphocytes # (auto) 1.6 10 ^3/uL (0.4-5.4); Lymphocytes % (auto) 18.5 % (10.0-50.0); Mean Corpuscular Hemoglobin 30.2 pg (28.0-32.0); Mean Corpuscular Hgb Conc. 33.2 g/dL (32.0-36.0); Mean Corpuscular Volume 91.1 fL (80.0-100.0); Monocytes # (auto) 1.4 10 ^3/uL (0-1.3); Monocytes % (auto) 16.3 % (0.0-12.0); Neutrophils # (auto) 5.4 10 ^3/uL (1.6-8.6); Neutrophils % (auto) 63.1 % (37.0-80.0); Platelet Count (auto) 284 10^3/uL (140-450); Red Blood Cells 4.23 10^6/uL (4.5-5.90); White Blood Cell 8.6 10^3/uL (4.4-10.8)
[2020-10-10 13:08] LABS: Albumin 3.1 g/dL (3.4-5.0); BUN/Creatinine Ratio 15.9; Calcium 8.7 mg/dL (8.5-10.1); Potassium 4.4 mmol/L (3.5-5.1); Uric Acid 3.1 mg/dL (3.5-7.2)
[2020-10-10 13:11] LABS: Bilirubin, Total 0.6 mg/dL (0.2-1.0); Total Protein 7.4 g/dL (6.4-8.2)
== END 2020-10-11 08:15 | disposition left against medical advice (07) ==
LOC: ER 11:06
DX: J06.9 Acute upper respiratory infection, unspecified (principal); I13.0 Hypertensive heart and chronic kidney disease with heart failure and stage 1 through stage 4 chronic kidney disease, or unspecified chronic kidney disease; N18.9 Chronic kidney disease, unspecified; I50.9 Heart failure, unspecified; E78.5 Hyperlipidemia, unspecified; Z20.828 Contact with and (suspected) exposure to other viral communicable diseases
CPT/HCPCS: 36415; 80053; 83880; 84550; 85025; 87426; 93005

== ENCOUNTER → 2020-12-23 | Outpatient (CLI) | payer OTHER ==
[~2020-12-23] MED LIST changes: +AMLO-496 PO; -AMLO10TA13 PO; -CLOP75TA41 PO; +CLOP75TA70 PO
== END | disposition home or self-care (01) ==
LOC: LAB 17:19
PROVIDERS: ATTEND Urology
DX: N39.0 Urinary tract infection, site not specified (principal)
CPT/HCPCS: 87086

== ENCOUNTER → 2021-01-05 | Outpatient (CLI) | payer OTHER | END | disposition home or self-care (01) | LOC: LAB 10:12 | PROVIDERS: ATTEND Urology | DX: N40.0 Benign prostatic hyperplasia without lower urinary tract symptoms (principal) | CPT/HCPCS: 84153 ==

== ENCOUNTER → 2021-04-28 | Outpatient (CLI) | payer OTHER ==
[~2021-04-28] MED LIST changes: -MONT10TA34 PO; +MONT10TA42 PO
[2021-04-28 10:39] LABS: Urine Bacteria NONE SEEN /hpf (None Seen); Urine Blood Negative /uL (Negative); Urine Mucus FEW (None Seen); Urine Specific Gravity 1.023 (1.001-1.035); Urine WBC 6 /hpf (0 - 3)
== END | disposition home or self-care (01) ==
LOC: LAB 10:12
PROVIDERS: ATTEND Urology
DX: N35.811 Other urethral stricture, male, meatal (principal)
CPT/HCPCS: 81001; 87086

== ENCOUNTER → 2021-10-18 | Outpatient (CLI) | payer OTHER ==
[~2021-10-18] MED LIST changes: +MONT-8 PO; -MONT10TA42 PO
[2021-10-18 09:55] LABS: Basophils # (auto) 0.1 10 ^3/uL (0-0.2); Basophils % (auto) 0.6 % (0.0-2.0); Eosinophils # (auto) 0.1 10 ^3/uL (0-0.8); Eosinophils % (auto) 0.9 % (0.0-7.0); Hematocrit 42.2 % (41.0-53.0); Lymphocytes # (auto) 2.7 10 ^3/uL (0.4-5.4); Mean Corpuscular Hgb Conc. 33.3 g/dL (32.0-36.0); Mean Corpuscular Volume 93.2 fL (80.0-100.0); Monocytes # (auto) 0.7 10 ^3/uL (0-1.3); Monocytes % (auto) 8.3 % (0.0-12.0); Neutrophils # (auto) 4.7 10 ^3/uL (1.6-8.6); Neutrophils % (auto) 57.2 % (37.0-80.0); Nucleated Red Blood Cells % 0.1 %; Red Blood Cells 4.53 10^6/uL (4.5-5.90); White Blood Cell 8.2 10^3/uL (4.4-10.8)
[2021-10-18 10:28] LABS: Urine Bacteria NONE SEEN /hpf (None Seen); Urine Blood Negative /uL (Negative); Urine Specific Gravity 1.024 (1.001-1.035); Urine WBC 1 /hpf (0 - 3)
[2021-10-18 10:33] LABS: Albumin 3.9 g/dL (3.4-5.0); Potassium 4.8 mmol/L (3.5-5.1)
[2021-10-18 10:37] LABS: BUN/Creatinine Ratio 17.3; Bilirubin, Total 0.6 mg/dL (0.2-1.0)
== END | disposition home or self-care (01) ==
LOC: LAB 09:29
PROVIDERS: ATTEND Family Medicine
DX: I12.9 Hypertensive chronic kidney disease with stage 1 through stage 4 chronic kidney disease, or unspecified chronic kidney disease (principal); E03.9 Hypothyroidism, unspecified; E55.9 Vitamin D deficiency, unspecified; I73.9 Peripheral vascular disease, unspecified; I42.9 Cardiomyopathy, unspecified; E78.49 Other hyperlipidemia; N39.3 Stress incontinence (female) (male); N18.30 Chronic kidney disease, stage 3 unspecified
CPT/HCPCS: 36415; 80053; 80061; 81001; 82306; 84443; 85025

== ENCOUNTER → 2022-03-13 | Outpatient (CLI) | payer OTHER ==
[~2022-03-13] MED LIST changes: +DILT90CA PO; +FLUT1AER6 IN; +LOSA-69 PO; +ZINC50TA7 PO
[2022-03-13 11:43] LABS: Basophils # (auto) 0.1 10 ^3/uL (0-0.2); Basophils % (auto) 0.6 % (0.0-2.0); Eosinophils # (auto) 0 10 ^3/uL (0-0.8); Eosinophils % (auto) 0.4 % (0.0-7.0); Hematocrit 41.1 % (41.0-53.0); Hemoglobin 13.8 g/dL (13.5-17.5); Lymphocytes # (auto) 1.6 10 ^3/uL (0.4-5.4); Lymphocytes % (auto) 20.8 % (10.0-50.0); Mean Corpuscular Hgb Conc. 33.6 g/dL (32.0-36.0); Mean Corpuscular Volume 92.2 fL (80.0-100.0); Monocytes # (auto) 0.8 10 ^3/uL (0-1.3); Monocytes % (auto) 10.1 % (0.0-12.0); Neutrophils # (auto) 5.3 10 ^3/uL (1.6-8.6); Neutrophils % (auto) 68.1 % (37.0-80.0); Red Blood Cells 4.46 10^6/uL (4.5-5.90); Red Cell Distribution Width 14.4 % (11.8-14.3); White Blood Cell 7.8 10^3/uL (4.4-10.8)
[2022-03-13 12:00] LABS: INR 1.06 (0.9-1.15)
[2022-03-13 12:33] LABS: Albumin 3.9 g/dL (3.4-5.0); BUN/Creatinine Ratio 16.8
[2022-03-13 12:36] LABS: Bilirubin, Total 0.5 mg/dL (0.2-1.0); Total Protein 7.1 g/dL (6.4-8.2)
== END | disposition home or self-care (01) ==
LOC: LAB 10:49
PROVIDERS: ATTEND Internal Medicine
DX: Z01.812 Encounter for preprocedural laboratory examination (principal); I10 Essential (primary) hypertension
CPT/HCPCS: 36415; 80053; 85025; 85610; 85730

== ENCOUNTER 2022-03-15 07:08 | Day surgery (SDC) | payer OTHER ==
[~2022-03-15] VITALS: Ht 165.1 cm; Wt 63.5 kg
[~2022-03-15 07:08] MED LIST changes: -ALPR0.254 PO; -DILT180C88 PO; -FLUT250M2 INH; -TAMS0.4C36 PO
[2022-03-15] MEDS ORDERED: IODIXANOL 320MG/ML 100ML BTL IV ONE (11:03)
[2022-03-15] MEDS ORDERED: LIDOCAINE 2%HCL (LOCAL ANESTH.) INJ 10ml MDV ONE (11:04)
[2022-03-15] MEDS ORDERED: VERAPAMIL 2.5MG/ML INJ 2ML VIAL IV ONE (11:05)
[2022-03-15] MEDS ORDERED: HEPARIN SODIUM (PORCINE) 5000 UNITS/ML 1ML VIAL ONE (11:05)
[2022-03-15] MEDS ORDERED: fentaNYL CITRATE 100 MCG/2 ML VL ONE (11:05)
[2022-03-15] MEDS ORDERED: ANGIOMAX 250 MG VIAL IV ONE (11:05)
[2022-03-15] MEDS ORDERED: SODIUM CHL 0.9% 50 ML ONE (11:06)
[2022-03-15] MEDS ORDERED: MIDAZOLAM HCL 2MG/2ML 2ml VIAL (1mg/ml) ONE (11:06)
== END 2022-03-15 15:22 | disposition home or self-care (01) ==
LOC: CATH 07:08
PROVIDERS: ATTEND Internal Medicine
DX: R94.39 Abnormal result of other cardiovascular function study (principal); I20.9 Angina pectoris, unspecified; J44.9 Chronic obstructive pulmonary disease, unspecified; Z82.49 Family history of ischemic heart disease and other diseases of the circulatory system; Z79.02 Long term (current) use of antithrombotics/antiplatelets; Z20.822 Contact with and (suspected) exposure to COVID-19; Z88.5 Allergy status to narcotic agent; Z88.8 Allergy status to other drugs, medicaments and biological substances
CPT/HCPCS: 93458; 93571; C1725; C1769; C1887; C1894; C9600; J0583; J1644; J2001; J2250; J3010; Q9967; U0003; 99152; 99153